=== PATIENT | female | born 1930 | race Caucasian/White ===

== ENCOUNTER 2019-01-12 22:50 | Emergency (ER) | payer MEDICARE ==
[~2019-01-12] VITALS: Ht 157.5 cm; Wt 53.8 kg
[~2019-01-12 22:50] MED LIST: ACID1TAB PO; ACYC800T PO; ALBU2.5V52 INH; ASP325T PO; ASP81CT PO; ASP81TEC PO; CALC500T47 PO; CHOL100055 PO; CHOL500019 PO; FLC150T PO; HYDR-3583 PO; LISI5TAB PO; LSRT50T PO; LVT.025T PO; METO25TA PO; MTP25TSR PO; MTX2.5T PO; MULT1CAP27 PO; MUPI22OI TP; OMEG-12 PO; PNT40TEC PO; PRD5T PO; PRED2.5T4 PO; SENN1TAB76 PO; SNN187T PO; TICA90TA PO; TIOT18CA IH; VANC1.5P IV
--- OUTSIDE RECORDS SUMMARY | 2019-01-12 22:57 | XMS REPORT | Continuity of Care Document ---
Author Author [facility] Organization [facility] Address Unknown Phone Unavailable Allergies Active Description Code Type Severity Reaction Onset Reported/Identified Relationship to Patient Clinical Status Yes NO KNOWN DRUG ALLERGIES NO KNOWN DRUG ALLERG UNKNOWN Yes NO KNOWN DRUG ALLERGIES UNKNOWN NO KNOWN DRUG ALLERG Yes No Known Drug Allergies [id number] Drug Allergy Unknown N/A 11/26/2012 Medications Medication Packaging Start Date Stop Date Route Dosage Sig ONDANSETRON VIAL INJ 4 MG/2CC (ZOFRAN 2CC VIAL) MG 03/28/2017 03/28/2017 PRN ONCE LACTATED RINGERS 500CC IV BAG INJ ml 03/28/2017 03/28/2017 ONCE&0802 LACTATED RINGERS 500CC IV BAG INJ ml 03/28/2017 03/28/2017 ONCE&0845 ACETAMINOPHEN ORAL TABLET 325mg(Tylenol) MG 04/01/2017 04/08/2017 PRN EVERY 6 Hour AZITHROMYCIN TAB 500 MG (ZITHROMAX) MG 04/01/2017 04/05/2017 Daily&2000 CEFTRIAXONE PREMIX IV BAG IV 1 GM/50CC (ROCEPHIN PREMIX IV BAG) GM 04/01/2017 04/08/2017 BID&0800,2000 GABAPENTIN CAP 300 MG (NEURONTIN) MG 04/01/2017 04/07/2017 QHS&2100 IPRATROPIUM/ALBUTEROL INH SOLN (DUO-NEB INH SOLN) MLS 04/01/2017 04/08/2017 QID&0600,1100,1600,2100 LACTOBACILLUS BULGARIS TAB (LACTINEX BULGARIS) tab 04/01/2017 04/11/2017 QID&0800,1200,1700,2200 FOLIC ACID TAB 1 MG MG 04/02/2017 04/08/2017 Daily& 0900 Rivastigmine TD Patch 24 hour 4.6mg (EXELON) MG 04/02/2017 04/11/2017 Daily&0900 CITALOPRAM TAB 10 MG (CELEXA) MG 04/02/2017 ONCE&1100 Dronabinol (MARINOL) 2.5mg capsule MG 04/02/2017 04/12/2017 EVERY 8 Hour&0307,1107,1907 Dronabinol (MARINOL) 2.5mg capsule MG 04/02/2017 04/12/2017 TID&0630,1130,1630 AZITHROMYCIN TAB 500 MG (ZITHROMAX) MG 04/02/2017 04/06/2017 Daily&2000 CEFTRIAXONE PREMIX IV BAG IV 1 GM/50CC (ROCEPHIN PREMIX IV BAG) GM 04/02/2017 04/09/2017 BID&0800,2000 CITALOPRAM TAB 10 MG (CELEXA) MG 04/09/2017 Daily&0900 AZITHROMYCIN TAB 500 MG (ZITHROMAX) MG 04/03/2017 04/07/2017 Daily&2000 NORMAL SALINE 1000CC IV BAG INJ 0.9 % (NS 1000CC IV BAG) ml 04/04/2017 04/19/2017 CONTINUOUSEVERY 0 Hour IPRATROPIUM/ALBUTEROL INH SOLN (DUO-NEB INH SOLN) MLS 04/05/2017 04/12/2017 QID&0600,1100,1600,2100 Dronabinol (MARINOL) 2.5mg capsule Dose(s) 04/05/2017 05/05/2017 TID&0630,1130,1630 LACTOBACILLUS BULGARIS TAB (LACTINEX BULGARIS) tab 04/05/2017 05/05/2017 QID&0800,1200,1700,2200 ACETAMINOPHEN ORAL TABLET 325mg(Tylenol) MG 04/05/2017 05/05/2017 QID&0800,1200,1700,2200 IPRATROPIUM/ALBUTEROL INH SOLN (DUO-NEB INH SOLN) MLS 04/05/2017 05/05/2017 QID&0800,1200,1700,2200 GUAIFENESIN TAB 600 MG (MUCINEX) MG 04/05/2017 04/12/2017 Q12H&0600,1800 AZITHROMYCIN TAB 500 MG (ZITHROMAX) MG 04/05/2017 04/06/2017 Daily&2000 GABAPENTIN CAP 300 MG (NEURONTIN) MG 04/05/2017 05/04/2017 QHS&2100 FOLIC ACID TAB 1 MG MG 04/06/2017 05/05/2017 Daily& 0900 AZITHROMYCIN TAB 500 MG (ZITHROMAX) MG 04/06/2017 04/10/2017 Daily&0900 CITALOPRAM TAB 10 MG (CELEXA) MG 05/05/2017 Daily&0900 Rivastigmine TD Patch 24 hour 4.6mg (EXELON) PATCH 04/06/2017 05/05/2017 Daily&0900 CEFTRIAXONE PREMIX IV BAG IV 1 GM/50CC (ROCEPHIN PREMIX IV BAG) GM 04/06/2017 04/12/2017 Daily&0900 doxycycline hyclate 100mg capsule (Vibramycin) MG 04/08/2017 04/17/2017 BID&0800,2000 METHOTREXATE TAB 2.5 MG (RHEUMATREX) MG 04/08/2017 04/15/2017 Q1WK&0900 doxycycline hyclate 100mg capsule (Vibramycin) MG 04/08/2017 04/17/2017 EVERY 12 Hour&0919,2119 IPRATROPIUM/ALBUTEROL INH SOLN (DUO-NEB INH SOLN) MLS 04/09/2017 04/16/2017 PRN Q6H Ondansetron (Zofran) oral tablet,disintegrating 4mg MG 04/09/2017 04/16/2017 PRN Q6H ACETAMINOPHEN ORAL TABLET 325mg(Tylenol) MG 04/11/2017 04/18/2017 PRN BID NORMAL SALINE 1000CC IV BAG INJ 0.9 % (NS 1000CC IV BAG) ml 10/20/2017 11/04/2017 CONTINUOUSEVERY 0 Hour ACETAMINOPHEN ORAL TABLET 325mg(Tylenol) MG 10/20/2017 10/27/2017 PRN EVERY 6 Hour AZITHROMYCIN TAB 500 MG (ZITHROMAX) MG 10/20/2017 10/20/2017 ONCE&1138 LACTOBACILLUS BULGARIS TAB (LACTINEX BULGARIS) tab 10/20/2017 10/30/2017 QID&0800,1200,1700,2200 ONDANSETRON VIAL INJ 4 MG/2CC (ZOFRAN 2CC VIAL) MG 10/20/2017 10/27/2017 PRN Q6H CEFTRIAXONE PREMIX IV BAG IV 1 GM/50CC (ROCEPHIN PREMIX IV BAG) GM 10/20/2017 10/20/2017 ONCE&1230 ALBUTEROL SVN 2.5MG/3CC LIQ 2.5 MG (PROVENTIL SIMRAN 2.5MG/3CC) MG 10/20/2017 10/30/2017 PRN QID GABAPENTIN CAP 300 MG (NEURONTIN) MG 10/20/2017 10/26/2017 QHS&2100 FOLIC ACID TAB 1 MG MG 10/21/2017 10/27/2017 Daily& 0900 METHOTREXATE TAB 2.5 MG (RHEUMATREX) MG 10/21/2017 11/11/2017 Q1WK&0900 CITALOPRAM TAB 10 MG (CELEXA) MG 10/27/2017 Daily&0900 CEFTRIAXONE PREMIX IV BAG IV 1 GM/50CC (ROCEPHIN PREMIX IV BAG) GM 10/21/2017 10/27/2017 Daily&0900 AZITHROMYCIN TAB 250 MG (ZITHROMAX) MG 10/21/2017 10/24/2017 Daily&1100 AZITHROMYCIN TAB 500 MG (ZITHROMAX) MG 10/21/2017 10/21/2017 ONCE&1200 AZITHROMYCIN TAB 500 MG (ZITHROMAX) MG 10/22/2017 10/26/2017 Daily&0900 NORMAL SALINE 1000CC IV BAG INJ 0.9 % (NS 1000CC IV BAG) ml 10/22/2017 11/06/2017 CONTINUOUSEVERY 0 Hour Dronabinol (MARINOL) 2.5mg capsule MG 10/22/2017 11/01/2017 EVERY 8 Hour&0254,1054,1854 Dronabinol (MARINOL) 2.5mg capsule MG 10/22/2017 11/01/2017 TID&0630,1130,1630 MECLIZINE TAB 25 MG (ANTIVERT) MG 10/22/2017 10/29/2017 Q8H&0600,1400,2200 CALMOSEPTINE OINT TUBE (RISAMINE OINT) gael 10/22/2017 10/29/2017 BID&0800,2000 NORMAL SALINE 1000CC IV BAG INJ 0.9 % (NS 1000CC IV BAG) ml 10/23/2017 11/07/2017 CONTINUOUSEVERY 0 Hour Dronabinol (MARINOL) 2.5mg capsule MG 10/23/2017 11/22/2017 TID&0630,1130,1630 LACTOBACILLUS BULGARIS TAB (LACTINEX BULGARIS) tab 10/23/2017 11/22/2017 QID&0800,1200,1700,2200 ACETAMINOPHEN ORAL TABLET 325mg(Tylenol) MG 10/23/2017 11/02/2017 PRN QID ONDANSETRON VIAL INJ 4 MG/2CC (ZOFRAN 2CC VIAL) MG 10/23/2017 11/02/2017 PRN Q6H ALBUTEROL SVN 2.5MG/3CC LIQ 2.5 MG (PROVENTIL SIMRAN 2.5MG/3CC) MG 10/23/2017 11/07/2017 PRN QID MECLIZINE TAB 25 MG (ANTIVERT) MG 10/23/2017 11/07/2017 Q8H&0600,1400,2200 CALMOSEPTINE OINT TUBE (RISAMINE OINT) gael 10/23/2017 11/07/2017 BID&0800,2000 GABAPENTIN CAP 300 MG (NEURONTIN) MG 10/23/2017 11/06/2017 QHS&2100 MELATONIN TAB 3 MG (MELATONIN) MG 10/23/2017 10/30/2017 PRN QHS FOLIC ACID TAB 1 MG MG 10/24/2017 11/22/2017 Daily& 0900 AZITHROMYCIN TAB 500 MG (ZITHROMAX) MG 10/24/2017 10/26/2017 Daily&0900 CITALOPRAM TAB 10 MG (CELEXA) MG 11/22/2017 Daily&0900 NORMAL SALINE 50CC IV BAG INJ (NS 50CC MINI-BAG) ml 10/24/2017 10/27/2017 Daily&0900 CEFTRIAXONE PREMIX IV BAG IV 1 GM/50CC (ROCEPHIN PREMIX IV BAG) GM 10/24/2017 10/27/2017 Daily&0900 MILK OF MAGNESIA LIQ ml 10/26/2017 11/05/2017 PRN Daily BISACODYL SUPPOS SUP 10 MG (DULCOLAX SUPPOS) MG 10/27/2017 11/03/2017 PRN Daily METHOTREXATE TAB 2.5 MG (RHEUMATREX) MG 10/28/2017 10/31/2017 Q1WK&0900 Mineral oil rectal enema (Fleets) APPLICATION 10/28/2017 10/28/2017 PRN ONCE ACETAMINOPHEN ORAL TABLET 325mg(Tylenol) MG 11/29/2017 11/29/2017 PRN ONCE NORMAL SALINE 1000CC IV BAG INJ 0.9 % (NS 1000CC IV BAG) ml 11/29/2017 12/14/2017 CONTINUOUSEVERY 0 Hour CEFEPIME VIAL INJ 2 GM (MAXIPIME VIAL) GM 11/29/2017 12/05/2017 Q12H&0200,1400 CEFEPIME VIAL INJ 2 GM (MAXIPIME VIAL) GM 11/29/2017 12/05/2017 Q12H&0600,1800 MECLIZINE TAB 25 MG (ANTIVERT) MG 11/29/2017 12/13/2017 Q8H&0600,1400,2200 Dronabinol (MARINOL) 2.5mg capsule MG 11/29/2017 12/28/2017 TID&0630,1130,1630 CALMOSEPTINE OINT TUBE (RISAMINE OINT) gael 11/29/2017 12/13/2017 BID&0800,2000 LACTOBACILLUS BULGARIS TAB (LACTINEX BULGARIS) tab 11/29/2017 12/28/2017 QID&0800,1200,1700,2200 FOLIC ACID TAB 1 MG MG 11/29/2017 12/28/2017 Daily& 0900 CITALOPRAM TAB 10 MG (CELEXA) MG 12/28/2017 Daily&0900 MILK OF MAGNESIA LIQ ml 11/29/2017 12/09/2017 PRN Daily IPRATROPIUM/ALBUTEROL INH SOLN (DUO-NEB INH SOLN) MLS 11/29/2017 12/06/2017 PRN Q4H Normal SALINE 0.9 % (NS 100cc) (plain bag) ml 11/29/2017 12/05/2017 Q12H - 11:59, 23:59&1159,2359 ACETAMINOPHEN ORAL TABLET 325mg(Tylenol) MG 11/29/2017 12/06/2017 PRN EVERY 6 Hour GABAPENTIN CAP 300 MG (NEURONTIN) MG 11/29/2017 12/13/2017 QHS&2100 Problems Date Dx Coded Attending Type Code Diagnosis Diagnosed By 03/28/2012 Ot 041.12 03/28/2012 Ot 112.0 03/28/2012 Ot 244.9 03/28/2012 Ot 273.8 03/28/2012 Ot 300.00 03/28/2012 Ot 401.9 03/28/2012 Ot 486 03/28/2012 Ot 491.20 03/28/2012 Ot 681.10 03/28/2012 Ot 714.0 03/28/2012 Ot 730.07 03/28/2012 Ot 786.50 03/28/2012 Ot 998.11 11/26/2012 Ot 244.9 11/26/2012 Ot 272.4 11/26/2012 Ot 273.8 11/26/2012 Ot 275.2 11/26/2012 Ot 276.2 11/26/2012 Ot 276.69 11/26/2012 Ot 276.8 11/26/2012 Ot 285.1 11/26/2012 Ot 286.6 11/26/2012 Ot 401.9 11/26/2012 Ot 414.01 11/26/2012 Ot 496 11/26/2012 Ot 512.1 11/26/2012 Ot 714.0 11/26/2012 Ot 785.59 11/26/2012 Ot 998.11 11/26/2012 Ot 998.2 11/26/2012 Ot 998.81 12/01/2012 Ot 276.8 12/01/2012 Ot 285.9 12/01/2012 Ot 288.60 12/01/2012 Ot 401.9 12/01/2012 Ot 414.01 12/01/2012 Ot 584.9 12/01/2012 Ot 782.4 12/01/2012 Ot E932.0 12/01/2012 Ot V45.82 12/01/2012 Ot V57.1 12/01/2012 Ot V57.21 08/19/2013 KEVIN MASSEY MD Ot 785.1 11/10/2015 Ot 496 11/10/2015 Ot 729.5 11/10/2015 Ot 729.81 11/10/2015 Ot 490 11/10/2015 Ot 786.2 11/10/2015 Ot 714.0 11/10/2015 Ot 727.1 11/10/2015 Ot 730.27 11/10/2015 Ot 714.0 11/10/2015 Ot 730.20 11/10/2015 Ot 041.12 11/10/2015 Ot 730.27 11/10/2015 Ot V58.62 11/10/2015 Ot 730.27 11/10/2015 Ot 413.9 11/10/2015 Ot 785.1 11/10/2015 Ot 786.50 11/10/2015 Ot 272.4 11/10/2015 Ot 397.0 11/10/2015 Ot 401.9 11/10/2015 Ot 424.0 11/10/2015 Ot 429.3 11/10/2015 Ot 496 11/10/2015 Ot 786.50 11/10/2015 Ot 280.0 11/10/2015 Ot 414.01 11/10/2015 Ot 586 11/10/2015 Ot 785.1 11/10/2015 DANISHROSITA SOFT WORK WRAPPER EXAMINER Ot 496 11/10/2015 DANISHINDIAROSITA Nilesh SOFT WORK WRAPPER EXAMINER Ot 786.2 12/01/2015 HASEEB ROBERTS [employer] CUTTER Ot M25.552 12/01/2015 HASEEB ROBERTS [employer] SE[employer] CUTTER Ot W19.XXXA 12/01/2015 HASEEB ROBERTS [employer] SE[employer] CUTTER Ot Y99.8 03/02/2017 Ot 714.0 RHEUMATOID ARTHRITIS 03/02/2017 Ot 727.1 BUNION 03/02/2017 Ot 730.27 OSTEOMYELITIS NOS-ANKLE 03/28/2017 Cullen Page 780.79 OTHER MALAISE AND FATIGUE 03/28/2017 Cullen Page 781.99 OTHER SYMPTOMS INVOLVING NERVOUS AND MUSCULOSKELETAL SYSTEMS 03/28/2017 Cullen Page 787.01 NAUSEA WITH VOMITING 03/28/2017 Cullen Page R11.2 NAUSEA WITH VOMITING, UNSPECIFIED 03/28/2017 Cullen Page R29.6 REPEATED FALLS 03/28/2017 Cullen Page R53.1 WEAKNESS 04/01/2017 Ot 714.0 RHEUMATOID ARTHRITIS 04/01/2017 Ot 727.1 BUNION 04/01/2017 Ot 730.27 OSTEOMYELITIS NOS-ANKLE 04/01/2017 Landry Dumont A 486 PNEUMONIA, ORGANISM UNSPECIFIED 04/01/2017 Landry Dumont A J18.9 PNEUMONIA, UNSPECIFIED ORGANISM 04/01/2017 Landry Dumont W 486 PNEUMONIA, ORGANISM UNSPECIFIED 04/01/2017 Landry Dumont J18.9 PNEUMONIA, UNSPECIFIED ORGANISM 04/05/2017 Landry Dumont W 276.1 HYPOSMOLALITY AND/OR HYPONATREMIA 04/05/2017 Landry Dumont W 599.0 04/05/2017 Tim Landry W 714.0 RHEUMATOID ARTHRITIS 04/05/2017 Brown, Landry W 780.79 04/05/2017 Brown, Landry W 781.99 OTHER SYMPTOMS INVOLVING NERVOUS AND MUSCULOSKELETAL SYSTEMS 04/05/2017 Brown, Landry W E87.1 HYPO-OSMOLALITY AND HYPONATREMIA 04/05/2017 Brown, Landry W M06.9 RHEUMATOID ARTHRITIS, UNSPECIFIED 04/05/2017 Brown, Landry W N39.0 URINARY TRACT INFECTION, SITE NOT SPECIFIED 04/05/2017 BrownMackLandry W R29.6 REPEATED FALLS 04/05/2017 BrownMackLandry W R53.1 WEAKNESS 04/11/2017 Brown, Landry A 486 PNEUMONIA, ORGANISM UNSPECIFIED 04/11/2017 Brown Landry W 599.0 URINARY TRACT INFECTION, SITE NOT SPECIFIED 04/11/2017 BrownMackLandry W 714.0 RHEUMATOID ARTHRITIS 04/11/2017 Brown Landry W 780.60 FEVER, UNSPECIFIED 04/11/2017 Brown, Landry A J18.9 PNEUMONIA, UNSPECIFIED ORGANISM 04/11/2017 BrownMackLandry W M06.9 RHEUMATOID ARTHRITIS, UNSPECIFIED 04/11/2017 BrownMackLandry W N39.0 URINARY TRACT INFECTION, SITE NOT SPECIFIED 04/11/2017 BrownMackLandry W R50.9 FEVER, UNSPECIFIED 10/12/2017 Brown, Landry A 041.81 MYCOPLASMA INFECTION IN CONDITIONS CLASSIFIED ELSEWHERE AND OF UNSPECIFIED SITE 10/12/2017 Brown, Landry A 486 PNEUMONIA, ORGANISM UNSPECIFIED 10/12/2017 Brown, Landry A J15.7 PNEUMONIA DUE TO MYCOPLASMA PNEUMONIAE 10/12/2017 Brown, Landry A J18.9 PNEUMONIA, UNSPECIFIED ORGANISM 10/20/2017 Brown, Landry A 041.81 MYCOPLASMA INFECTION IN CONDITIONS CLASSIFIED ELSEWHERE AND OF UNSPECIFIED SITE 10/20/2017 Brown, Alndry A J15.7 PNEUMONIA DUE TO MYCOPLASMA PNEUMONIAE 10/20/2017 Brown, Landry W 486 PNEUMONIA, ORGANISM UNSPECIFIED 10/20/2017 Brown, Landry W 728.88 RHABDOMYOLYSIS 10/20/2017 Brown, Landry W E888.9 UNSPECIFIED FALL 10/20/2017 Brown, Landry W J18.9 PNEUMONIA, UNSPECIFIED ORGANISM 10/20/2017 Brown, Landry W M62.82 RHABDOMYOLYSIS 10/20/2017 Brown, Landry W W19 UNSPECIFIED FALL 10/20/2017 Tim, Landry W 486 PNEUMONIA, ORGANISM UNSPECIFIED 10/20/2017 Brown, Landry W 728.88 RHABDOMYOLYSIS 10/20/2017 Landry Dumont W E888.9 UNSPECIFIED FALL 10/20/2017 Landry Dumont W J18.9 PNEUMONIA, UNSPECIFIED ORGANISM 10/20/2017 Landry Dumont W M62.82 RHABDOMYOLYSIS 10/20/2017 Tim, Landry W W19 UNSPECIFIED FALL 10/23/2017 Landry Dumont W 290.0 10/23/2017 Brown, Landry W 486 PNEUMONIA, ORGANISM UNSPECIFIED 10/23/2017 Landry Dumont W 491.20 10/23/2017 Landry Dumont W 728.88 RHABDOMYOLYSIS 10/23/2017 TimLandry W 780.4 10/23/2017 Landry Dumont W E888.9 UNSPECIFIED FALL 10/23/2017 TimMackLandry W F03.90 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 10/23/2017 TimLandry W J18.9 PNEUMONIA, UNSPECIFIED ORGANISM 10/23/2017 Tim Landry W J44.9 CHRONIC OBSTRUCTIVE PULMONARY DISEASE, UNSPECIFIED 10/23/2017 Landry Dumont W M62.82 RHABDOMYOLYSIS 10/23/2017 Landry Dumont R42 DIZZINESS AND GIDDINESS 10/23/2017 Landry Dumont V15.88 PERSONAL HISTORY OF FALL 10/23/2017 Landry Dumont W W19 UNSPECIFIED FALL 10/23/2017 Landry Dumont W Z91.81 HISTORY OF FALLING 11/01/2017 Landry Dumont 041.81 MYCOPLASMA INFECTION IN CONDITIONS CLASSIFIED ELSEWHERE AND OF UNSPECIFIED SITE 11/01/2017 Tim Landry W 290.0 11/01/2017 Tim Landry W 491.20 OBSTRUCTIVE CHRONIC BRONCHITIS, WITHOUT EXACERBATION 11/01/2017 Tim Landry W 780.4 DIZZINESS AND GIDDINESS 11/01/2017 Ladnry Dumont F03.90 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 11/01/2017 Landry Dumont J15.7 PNEUMONIA DUE TO MYCOPLASMA PNEUMONIAE 11/01/2017 Landry Dumont J44.9 CHRONIC OBSTRUCTIVE PULMONARY DISEASE, UNSPECIFIED 11/01/2017 Landry Dumont W R42 DIZZINESS AND GIDDINESS 11/01/2017 Brown, Landry W V15.88 PERSONAL HISTORY OF FALL 11/01/2017 Brown, Landry W Z91.81 HISTORY OF FALLING 11/29/2017 Brown, Landry W 780.61 FEVER PRESENTING WITH CONDITIONS CLASSIFIED ELSEWHERE 11/29/2017 Brown, Landry W R50.81 FEVER PRESENTING WITH CONDITIONS CLASSIFIED ELSEWHERE 11/29/2017 Brown, Landry W 780.61 FEVER PRESENTING WITH CONDITIONS CLASSIFIED ELSEWHERE 11/29/2017 Brown, Landry W E888.9 UNSPECIFIED FALL 11/29/2017 Brown, Landry W R50.81 FEVER PRESENTING WITH CONDITIONS CLASSIFIED ELSEWHERE 11/29/2017 Brown, Landry W W19 UNSPECIFIED FALL 11/29/2017 Brown, Landry W 780.61 FEVER PRESENTING WITH CONDITIONS CLASSIFIED ELSEWHERE 11/29/2017 Brown, Landry W E888.9 UNSPECIFIED FALL 11/29/2017 Brown, Landry W R50.81 FEVER PRESENTING WITH CONDITIONS CLASSIFIED ELSEWHERE 11/29/2017 Brown, Landry W W19 UNSPECIFIED FALL 11/29/2017 Brown, Landry W 780.61 FEVER PRESENTING WITH CONDITIONS CLASSIFIED ELSEWHERE 11/29/2017 Brown, Landry W E888.9 UNSPECIFIED FALL 11/29/2017 Brown, Landry W R50.81 FEVER PRESENTING WITH CONDITIONS CLASSIFIED ELSEWHERE 11/29/2017 Brown, Landry W W19 UNSPECIFIED FALL 11/29/2017 Brown, Landry W 780.61 FEVER PRESENTING WITH CONDITIONS CLASSIFIED ELSEWHERE 11/29/2017 Brown, Landry W E888.9 UNSPECIFIED FALL 11/29/2017 Brown, Landry W R50.81 FEVER PRESENTING WITH CONDITIONS CLASSIFIED ELSEWHERE 11/29/2017 Brown, Landry W W19 UNSPECIFIED FALL 11/30/2017 Brown, Landry W 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, UNCOMPLICATED 11/30/2017 Brown, Landry W 714.0 RHEUMATOID ARTHRITIS 11/30/2017 Brown, Landry A 780.60 11/30/2017 Brown, Landry W 780.61 FEVER PRESENTING WITH CONDITIONS CLASSIFIED ELSEWHERE 11/30/2017 Brown, Landry W 780.79 11/30/2017 Brown, Landry W 781.99 11/30/2017 Brown, Landry W 786.05 11/30/2017 Brown, Landry W 786.2 11/30/2017 Brown, Landry W E888.9 UNSPECIFIED FALL 11/30/2017 Brown, Landry W F03.90 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 Results Test Result Range Urine Culture - 02/07/17 11:20 PRELIM CULTURE RESULTS No Growth 24 hours FINAL CULTURE RESULTS No Growth 48 hours MEDIA PLATED Setup at 15:00 02/07/2017 CULTURE SOURCE void Holter [place] 24 Hour - 02/08/17 08:06 Holter Monitor 24 Hour Complete Sed Rate - 02/14/17 11:21 Sed Rate 26 mm/hr 9-15 Protime - 03/28/17 07:53 INR 1.0 1.0-4.0 Protime 11.7 Sec 9.9-12.8 Urinalysis - 03/28/17 08:48 Icotest N/A Negative Urine Crystals trace amorphous urates Urine Volume Urine Volume Insufficient (<10mL) May Affect Microscopic Exam Urine Yeast No Yeast present Urine-Appearance Clear Clear Urine-Bacteria Negative Urine-Bilirubin Negative Negative Urine-Blood Negative Negative Urine-Color Yellow Colorless-Lt. Yellow Urine-Epithelial Cells Rare/HPF Urine-Glucose Negative Negative Urine-Ketones Trace Negative Urine-Leukocytes Negative Negative Urine-Nitrite Negative Negative Urine-Other Urine Saved if Culture Needed (48hrs from time of collection) Urine-pH 5.5 5-8.5 Urine-Protein 1+ Negative Urine-RBC Negative Urine-Specific [place] 1.025 1.000-1.030 Urine-WBC Negative Urobilinogen 0.2 E.U./dL 0.2-1.0 Thyroid Stimulating Hormone - 04/01/17 14:07 TSH 1.63 mIU/mL 0.32-5.00 Urine Culture - 04/01/17 14:07 FINAL CULTURE RESULTS 20,000-50,000 Gram Positive Mixed [id number] Skin Contaminant [id number] Further Workup done MEDIA PLATED Setup at 14:46 on 04/01/2017 CULTURE SOURCE void Blood Culture - 04/01/17 14:30 PRELIM CULTURE RESULTS Blood Culture Negative, No Growth Day 1 FINAL CULTURE RESULTS Blood Culture Negative, No Growth Day 5 MEDIA PLATED Blood Culture Media Position C44 CULTURE SOURCE RIGHT ARM IFOBT Occult Blood - 04/01/17 17:30 IFOBT Occult Blood NEGATIVE Negative Blood Culture - 04/01/17 18:50 PRELIM CULTURE RESULTS Blood Culture Negative, No Growth Day 1 FINAL CULTURE RESULTS Blood Culture Negative, No Growth Day 5 MEDIA PLATED Blood Culture Media Position C50 CULTURE SOURCE left arm [facility] - 04/03/17 07:16 Anion Gap 13 6-14 BUN 11 mg/dL 5-25 Calcium 10.2 mg/dL 8.3-10.4 Chloride 100 mmol/L 95-114 CO2 28 mEq/L 22-33 Creat 0.88 mg/dL 0.50-1.50 eGFR 61 mL/min/1.73m2 >59 Glucose 98 mg/dL 70-110 Osmo 283 280-295 Potassium 3.8 mmol/L 3.5-5.3 Sodium 137 mmol/L 134-148 EKG - 04/03/17 10:27 EKG Complete Urinalysis - 04/04/17 15:10 Icotest N/A Negative Urine Volume Urine Volume Sufficient (10mL) Urine-Appearance Clear Clear Urine-Bilirubin Negative Negative Urine-Blood Trace-intact Negative Urine-Color Yellow Colorless-Lt. Yellow Urine-Epithelial Cells 0-5/HPF Urine-Glucose Negative Negative Urine-Ketones Negative Negative Urine-Leukocytes Negative Negative Urine-Nitrite Negative Negative Urine-pH 6.0 5-8.5 Urine-Protein Negative Negative Urine-RBC 0-2/HPF Urine-Specific [place] <=1.005 1.000-1.030 Urobilinogen 0.2 E.U./dL 0.2-1.0 [facility] - 04/05/17 06:45 Anion Gap 12 6-14 BUN 8 mg/dL 5-25 Calcium 9.6 mg/dL 8.3-10.4 Chloride 106 mmol/L 95-114 CO2 27 mEq/L 22-33 Creat 0.79 mg/dL 0.50-1.50 eGFR 69 mL/min/1.73m2 >59 Glucose 88 mg/dL 70-110 Osmo 289 280-295 Potassium 4.1 mmol/L 3.5-5.3 Sodium 141 mmol/L 134-148 Comprehensive Metabolic Panel - 04/07/17 07:00 Albumin 3.0 g/dL 3.6-5.1 ALP 75 U/L 35-130 ALT 20 U/L 6-45 Anion Gap 13 6-14 AST 37 U/L 2-40 BUN 10 mg/dL 5-25 Calcium 10.2 mg/dL 8.3-10.4 Chloride 101 mmol/L 95-114 CO2 28 mEq/L 22-33 Creat 0.88 mg/dL 0.50-1.50 eGFR 61 mL/min/1.73m2 >59 Globulin 2.3 g/dL 2.3-3.5 Glucose 87 mg/dL 70-110 Osmo 284 280-295 Potassium 4.4 mmol/L 3.5-5.3 Sodium 138 mmol/L 134-148 TBil 0.4 mg/dL 0.2-1.2 TP 5.3 g/dL 6.0-8.3 Urinalysis - 04/07/17 08:00 Icotest N/A Negative Urine Volume Urine Volume Sufficient (10mL) Urine Yeast No Yeast present Urine-Appearance Clear Clear Urine-Bacteria Trace Urine-Bilirubin Negative Negative Urine-Blood Negative Negative Urine-Color Yellow Colorless-Lt. Yellow Urine-Epithelial Cells 0-5/HPF Urine-Glucose Negative Negative Urine-Ketones Negative Negative Urine-Leukocytes Negative Negative Urine-Nitrite Negative Negative Urine-pH 7.0 5-8.5 Urine-Protein Negative Negative Urine-RBC 0-2/HPF Urine-Specific [place] 1.015 1.000-1.030 Urine-WBC 0-2/HPF Urobilinogen 0.2 E.U./dL 0.2-1.0 EKG - 04/07/17 10:13 EKG Complete CBC with Auto Diff - 04/10/17 07:00 Baso% 0.50 % 0.00-2.50 Eos 0.5 K/uL 0.0-0.7 Eos% 7.1 % 0.0-7.0 Hct 34.4 % 36.0-46.0 Hgb 10.9 g/dL 13.0-15.0 Lym 1.21 K/uL 0.60-3.40 Lym% 16.4 % 10.0-50.0 MCH 31.7 pg 27.0-31.0 MCHC 31.7 g/dL 32.0-36.0 MCV 100.0 fL 80.0-97.0 [place]% 10.3 % 0.0-12.0 MPV 9.6 fL 7.4-10.0 Kevin% 65.7 % 37.0-80.0 Plt 478 K/uL 150-400 RBC 3.44 M/uL 3.60-5.00 RDW 20.9 % 11.6-14.8 WBC 7.36 K/uL 5.00-10.00 Kevin 4.83 K/uL 2.00-6.90 [place] 0.8 K/uL 0.0-0.9 Baso 0.0 K/uL 0.0-0.2 BMP - 04/10/17 07:00 Anion Gap 13 6-14 BUN 16 mg/dL 5-25 Calcium 10.2 mg/dL 8.3-10.4 Chloride 102 mmol/L 95-114 CO2 28 mEq/L 22-33 Creat 0.87 mg/dL 0.50-1.50 eGFR 62 mL/min/1.73m2 >59 Glucose 88 mg/dL 70-110 Osmo 288 280-295 Potassium 4.4 mmol/L 3.5-5.3 Sodium 139 mmol/L 134-148 Mycoplasma - 10/20/17 10:03 Mycoplasma Positive Negative Urinalysis - 10/20/17 10:03 Icotest N/A Negative Urine Volume Urine Volume Sufficient (10mL) Urine Yeast No Yeast present Urine-Appearance Slightly Cloudy Clear Urine-Bacteria Negative Urine-Bilirubin Negative Negative Urine-Blood Negative Negative Urine-Color Yellow Colorless-Lt. Yellow Urine-Glucose Negative Negative Urine-Ketones Negative Negative Urine-Leukocytes Negative Negative Urine-Nitrite Negative Negative Urine-Other Urine Saved if Culture Needed (48hrs from time of collection) Urine-pH 7.5 5-8.5 Urine-Protein Trace Negative Urine-RBC Negative Urine-Specific [place] 1.015 1.000-1.030 Urine-WBC Nothing Seen on Microscopic Urobilinogen 0.2 E.U./dL 0.2-1.0 Lactic Acid - 10/20/17 10:25 Lactic Acid 17.2 mg/dL 4.5-19.8 Blood Culture - 10/20/17 10:26 PRELIM CULTURE RESULTS Blood Culture Negative, No Growth Day 1 FINAL CULTURE RESULTS Blood Culture Negative, No Growth Day 5 CULTURE SOURCE IV START Blood Culture - 10/20/17 14:49 PRELIM CULTURE RESULTS Blood Culture Negative, No Growth Day 1 FINAL CULTURE RESULTS Blood Culture Negative, No Growth Day 5 CULTURE SOURCE blood culture #2 right forearm Myoglobin - 10/21/17 05:23 Myoglobin 85.8 ng/ml 1.6-106.0 Sputum Culture - 10/21/17 19:11 PRELIM CULTURE RESULTS Abundant Gram Positive Mixed Patricia FINAL CULTURE RESULTS Abundant Gram Positive Mixed [id number] Pathogens Isolated [id number] Further Workup done MEDIA PLATED Setup at 20:29 on 10/21/2017 Myoglobin - 10/22/17 07:00 Myoglobin 62.6 ng/ml 1.6-106.0 BNP - 10/23/17 07:01 BNP 286.60 pg/ml 0.00-100.00 BNP - 10/25/17 06:03 BNP 163.80 pg/ml 0.00-100.00 BNP - 10/28/17 07:00 BNP 173.30 pg/ml 0.00-100.00 Urinalysis - 10/30/17 12:35 Icotest N/A Negative Urine Volume Urine Volume Sufficient (10mL) Urine Yeast No Yeast present Urine-Appearance Clear Clear Urine-Bacteria Negative Urine-Bilirubin Negative Negative Urine-Blood Negative Negative Urine-Color Yellow Colorless-Lt. Yellow Urine-Epithelial Cells 0-5/HPF Urine-Glucose Negative Negative Urine-Ketones Negative Negative Urine-Leukocytes Negative Negative Urine-Mucus 1+ Urine-Nitrite Negative Negative Urine-Other Urine Saved if Culture Needed (48hrs from time of collection) Urine-pH 6.5 5-8.5 Urine-Protein Negative Negative Urine-RBC Negative Urine-Specific [place] 1.010 1.000-1.030 Urine-WBC Nothing Seen on Microscopic Urobilinogen 0.2 E.U./dL 0.2-1.0 BMP - 11/01/17 06:27 Anion Gap 12 6-14 BUN 24 mg/dL 5-25 Calcium 10.0 mg/dL 8.3-10.4 Chloride 104 mmol/L 95-114 CO2 28 mEq/L 22-33 Creat 0.77 mg/dL 0.50-1.50 eGFR 71 mL/min/1.73m2 >59 Glucose 84 mg/dL 70-110 Osmo 290 280-295 Potassium 4.5 mmol/L 3.5-5.3 Sodium 139 mmol/L 134-148 Lactic Acid - 11/28/17 22:56 Lactic Acid 9.1 mg/dL 4.5-19.8 Urinalysis - 11/28/17 23:08 Icotest N/A Negative Urine Crystals Amorphous material: few/HPF Urine Volume Urine Volume Sufficient (10mL) Urine-Appearance Clear Clear Urine-Bacteria Negative Urine-Bilirubin Negative Negative Urine-Blood Trace-intact Negative Urine-Color Yellow Colorless-Lt. Yellow Urine-Epithelial Cells 0-5/HPF Urine-Glucose Negative Negative Urine-Ketones Negative Negative Urine-Leukocytes Negative Negative Urine-Nitrite Negative Negative Urine-Other Urine Saved if Culture Needed (48hrs from time of collection) Urine-pH 7.5 5-8.5 Urine-Protein Negative Negative Urine-RBC 0-2/HPF Urine-Specific [place] 1.020 1.000-1.030 Urine-WBC 0-2/HPF Urobilinogen 0.2 0.2-1.0 Urine Culture - 11/28/17 23:08 PRELIM CULTURE RESULTS No Growth 24 hours FINAL CULTURE RESULTS No Growth 48 hours MEDIA PLATED Setup at 23:10 on 11/28/2017 CULTURE SOURCE cath urine PTT - 11/28/17 23:25 PTT 33.5 Sec 26.0-38.0 Blood Culture - 11/29/17 00:07 PRELIM CULTURE RESULTS Blood Culture Negative, No Growth Day 1 FINAL CULTURE RESULTS Blood Culture Negative, No Growth Day 5 MEDIA PLATED Setup at 01:23 on 11/29/2017 CULTURE SOURCE Right Arm Blood Culture - 11/29/17 00:15 PRELIM CULTURE RESULTS Blood Culture Negative, No Growth Day 1 FINAL CULTURE RESULTS Blood Culture Negative, No Growth Day 5 MEDIA PLATED Setup at 01:24 on 11/29/2017 CULTURE SOURCE Left forearm Influenza - 11/29/17 00:38 Influenza NEGATIVE FOR A and B 0.00-0.00 Cardiac Panel - 11/29/17 06:23 CK 112 U/L 26-174 CK-MB 0.7 ng/ml 0.0-9.2 Myoglobin 90.4 ng/ml 1.6-106.0 Troponin <0.020 ng/mL 0.0-0.4 Cardiac Panel - 11/30/17 05:30 CK 74 U/L 26-174 CK-MB 0.9 ng/ml 0.0-9.2 Myoglobin 53.7 ng/ml 1.6-106.0 Troponin <0.020 ng/mL 0.0-0.4 BMP - 11/30/17 05:30 Anion Gap 11 6-14 BUN 13 mg/dL 5-25 Calcium 9.6 mg/dL 8.3-10.4 Chloride 113 mmol/L 95-114 CO2 22 mEq/L 22-33 Creat 0.78 mg/dL 0.50-1.50 eGFR 70 mL/min/1.73m2 >59 Glucose 84 mg/dL 70-110 Osmo 293 280-295 Potassium 3.9 mmol/L 3.5-5.3 Sodium 142 mmol/L 134-148 Encounters ACCT No. Visit Date/Time Discharge Status Pt. Type Provider Facility Loc./Unit Complaint [id number] 11/10/2015 13:01:00 11/10/2015 23:59:59 CLS Outpatient HASEEB ROBERTS APRN [facility] RAD [id number] 07/05/2014 08:56:00 07/05/2014 23:59:59 CLS Outpatient ROSITA PENG [facility] RAD [id number] 06/15/2013 09:30:00 08/19/2013 00:01:00 DIS Outpatient KEVIN MASSEY MD [facility] CARD [id number] 01/12/2019 22:51:00 ACT Emergency MONA SOL MÁRQUEZ [facility] ER FALL [id number] 11/10/2015 12:56:00 Document Registration [id number] 08/20/2013 09:00:00 Document Registration [id number] 12/05/2012 11:00:00 Document Registration [id number] 11/26/2012 11:10:00 Document Registration [id number] 11/18/2012 16:06:00 Document Registration [id number] 11/14/2012 07:58:00 Document Registration [id number] 11/04/2012 12:42:00 Document Registration [id number] 04/05/2012 09:00:00 Document Registration [id number] 04/01/2012 09:00:00 Document Registration [id number] 03/30/2012 08:40:00 Document Registration [id number] 03/19/2012 08:15:00 Document Registration [id number] 03/18/2012 11:57:00 Document Registration [id number] 02/11/2012 10:52:00 Document Registration [id number] 01/19/2011 13:32:00 Document Registration [id number] 11/28/2017 22:33:00 11/30/2017 15:45:00 DIS Outpatient [facility] MED-SURG [id number] 10/23/2017 10:00:00 11/01/2017 11:40:00 DIS Inpatient [facility] MED-SURG [id number] 10/20/2017 09:40:00 10/23/2017 10:00:00 DIS Inpatient [facility] MED-SURG [id number] 04/05/2017 10:00:00 04/11/2017 16:35:00 DIS Inpatient Landry Dumont [id number] 04/01/2017 13:12:00 04/05/2017 10:00:00 DIS Inpatient [facility] ICU [id number] 03/28/2017 07:25:00 03/28/2017 09:39:00 DIS Outpatient [facility] ER [id number] 02/21/2017 09:42:00 02/21/2017 23:59:00 DIS Outpatient Jacinto Ogden B [id number] 02/14/2017 11:09:00 02/14/2017 23:59:00 DIS Outpatient Jacinto Ogden B [id number] 02/08/2017 07:57:00 02/08/2017 23:59:00 DIS Outpatient TimLandry [id number] 02/07/2017 11:20:00 02/07/2017 23:59:00 DIS Outpatient Luann Gomez 804 03/28/2017 08:02:53 Document Registration
[2019-01-12] MEDS ORDERED: TETANUS,DIPTH,PERTUSS P/F (BOOSTRIX) 0.5 ML VIAL IM STA (23:01)
[2019-01-12 23:09] LABS: BASOPHILS # (AUTO) 0.1 10^3/uL (0.0-0.1); BASOPHILS % (AUTO) 1 % (0-10); EOSINOPHILS # (AUTO) 0.3 10^3/uL (0.0-0.3); EOSINOPHILS % (AUTO) 3 % (0-10); HEMATOCRIT 41 % (35-52); HEMOGLOBIN 13.3 G/DL (11.5-16.0); LYMPHOCYTES # (AUTO) 2.1 X 10^3 (1.0-4.0); LYMPHOCYTES % (AUTO) 21 % (12-44); MEAN CORPUSCULAR HEMOGLOBIN 31 PG (25-34); MEAN CORPUSCULAR HGB CONC 32 G/DL (32-36); MEAN CORPUSCULAR VOLUME 95 FL (80-99); MEAN PLATELET VOLUME 11.3 FL (7.4-10.4); MONOCYTES # (AUTO) 0.9 X 10^3 (0.0-1.0); MONOCYTES % (AUTO) 9 % (0-12); NEUTROPHILS # (AUTO) 6.7 X 10^3 (1.8-7.8); NEUTROPHILS % (AUTO) 67 % (42-75); PLATELET COUNT 224 10^3/uL (130-400); RED CELL DISTRIBUTION WIDTH 16.6 % (10.0-14.5); WHITE BLOOD COUNT 10.1 10^3/uL (4.3-11.0)
[2019-01-12 23:20] LABS: INR 0.9 (0.8-1.4); PROTHROMBIN TIME PATIENT 12.5 SEC (12.2-14.7)
[2019-01-12 23:25] LABS: ALANINE AMINOTRANSFERASE 18 U/L (0-55); ALBUMIN 3.9 GM/DL (3.2-4.5); ALKALINE PHOSPHATASE 123 U/L (40-136); BILIRUBIN,TOTAL 0.4 MG/DL (0.1-1.0); BUN/CREATININE RATIO 10; CALCIUM 10.4 MG/DL (8.5-10.1); CARBON DIOXIDE 25 MMOL/L (21-32); CHLORIDE 103 MMOL/L (98-107); CREATININE SERUM 1.34 MG/DL (0.60-1.30); GFR ESTIMATED 38; GLUCOSE 99 MG/DL (70-105); MAGNESIUM 2.1 MG/DL (1.8-2.4); POTASSIUM 4.1 MMOL/L (3.6-5.0); SODIUM 140 MMOL/L (135-145)
[2019-01-13 00:45] LABS: BILIRUBIN,URINE NEGATIVE (NEGATIVE); CLARITY,URINE SLIGHTLY CLOUDY; COLOR,URINE YELLOW; GLUCOSE, URINE (UA) NEGATIVE (NEGATIVE); KETONES,URINE NEGATIVE (NEGATIVE); LEUKOCYTE ESTERASE ,URINE 3+ (NEGATIVE); NITRITE,URINE POSITIVE (NEGATIVE); PH,URINE 6 (5-9); PROTEIN,URINE NEGATIVE (NEGATIVE); UROBILINOGEN,URINE NORMAL (NORMAL)
[2019-01-13 00:52] LABS: BACTERIA,URINE LARGE /HPF; SQUAMOUS EPITHELIAL CELL,UR 0-2 /HPF; WBC,URINE 25-50 /HPF
[2019-01-13] MEDS ORDERED: KETOROLAC 30 MG/ML VIAL ONE (01:05)
[2019-01-13] MEDS ORDERED: SULF1TAB35 PO (01:12)
--- NOTE | 2019-01-13 01:12 | ED Fall/Injury ---
General Chief Complaint: Trauma-Non Activation Stated Complaint: FALL Source: family (SON ARRIVES LATER ), EMS, care home records, old records ( ALL [facility]H IS FROM OLD RECORD) Exam Limitations: other (PT WITH DEMENTIA, UNABLE TO RECALL THE FALL, AND EVENT WAS NOT WITNESSED) History of Present Illness Date Seen by Provider: Jan 12, 2019 Time Seen by Provider: 22:57 Initial Comments PT ARRIVES VIA EMS FROM [facility]IA [facility] PT HAD UNWITNESSED "FALL" TONIGHT PT HAS LACERATION TO BACK OF HEAD AND C/O PAIN TO LEFT ELBOW PT HAS DEMENTIA AND HAS NO RECOLLECTION OF THE EVENT, WHERE SHE WAS OR WHAT SHE WAS DOING--THIS IS PT'S NORMAL BASELINE. PT REPORTEDLY VOMITED EARLIER AND PT AGREES THAT SHE DID VOMIT. SHE DENIES FEELING NAUSEATED NOW. PT STATES THAT HER HEAD HURT EARLIER BUT IT DOES NOT HURT NOW. PT DENIES NECK OR BACK PAIN PT DENIES HIP PAIN PT WITH HISTORY OF FALLS PT HAS NOT HAD ANY VISITS HERE SINCE 2011 PCP: DR. MASSEY Allergies and Home Medications Allergies Coded Allergies: No Known Drug Allergies (Unverified , 11/26/12) Home Medications Aspirin 81 Mg Chew, 81 MG PO DAILY, (Reported) Cholecalciferol (Vitamin D3) 50,000 Unit Capsule, 50,000 UNIT PO DAILY, ( Reported) Lisinopril 5 Mg Tablet, 5 MG PO DAILY, (Reported) Methotrexate 2.5 Mg Tab, 4 EACH PO WEEKLY, (Reported) Metoprolol Succinate 25 Mg Tab, 25 MG PO DAILY, (Reported) Multivitamins 1 Each Capsule, 1 EACH PO DAILY, (Reported) Kenvir-3/Dha/Epa/Fish Oil 1 Each Capsule.dr, 1 EACH PO BID, (Reported) Pantoprazole Sodium 40 Mg Tablet.dr, 1 TAB PO DAILY, (Reported) Prednisone 2.5 Mg Tablet, 3 TAB PO DAILY, (Reported) Sulfamethoxazole/Trimethoprim 1 Each Tablet, 1 EACH PO BID Prescribed by: SOL DUNN on 01/13/19 0112 Ticagrelor 90 Mg Tablet, 90 MG PO BID, (Reported) Tiotropium [place] 1 Inh Aerp, 0 IH DAILY, (Reported) 1 INHALATION Patient Home Medication List Home Medication List Reviewed: Yes Review of Systems Review of Systems Constitutional: no symptoms reported; No dizziness Respiratory: no symptoms reported Cardiovascular: no symptoms reported Gastrointestinal: see HPI, nausea, vomiting Genitourinary: no symptoms reported Musculoskeletal: see HPI Skin: see HPI Psychiatric/Neurological: See HPI, Pre-Existing Deficit (DEMENTIA) Past Fvkseeg-Hmovtl-Xsdmmv Hx Patient Social History Alcohol Use: Denies Use Recreational Drug Use: No Smoking Status: Never a Smoker Recent Foreign Travel: No Contact w/Someone Who Travel: No Immunizations Up To Date Date of Pneumonia Vaccine: Nov 18, 2009 Past Medical History Surgeries: Yes (CARDIAC CATH WTIH ANGIOPLSTY AND STENT X1--COMPLICATIONS-- REPAIR OF FEMORAL ARTERY BLEED, BILATERAL CHEST TUBES X 2; BILATERAL CATARACTS; HYST; AMPUTATION LEFT 5TH TOE DUE TO OSTEOMYELITIS) Amputation, Angioplasty, Appendectomy, Cardiac, Coronary Stent, Hysterectomy, Orthopedic, Vascular Surgery Respiratory: Yes (CODED DUE TO FEMORAL ARTERY BLEED POST CARDIAC CATH-- TRAUMATIC INTUBATION WITH BILATERAL CHIEST TUBES; HAS BEEN STEROID DEPENDENT COPD IN THE PAST. ) Asthma, COPD Cardiac: Yes (CODED POST-CARDIAC CATH DUE TO FEMORAL ARTERY BLEED/ RETROPERITONEAL BLEED WITH EMERGENT SURGICAL REPAIR,WITH TRAUMATIC INTUBATION WITH PNEMOMEDIASTINUM AND BILATERAL CHEST TUBES; ) Coronary Artery Disease, High Cholesterol, Hypertension, Peripheral Vascular Neurological: Yes Dementia Reproductive Disorders: No MANAGER ART History: Hysterectomy, Menopausal Genitourinary: Yes UTI-Chronic Gastrointestinal: No Musculoskeletal: Yes (OSTEOMYELITIS LEFT 5TH TOE WITH AMPUTATION; POOR BALANCE/ GAIT DISTURBANCE; FALLS; VERTEBRAL COMPRESSION FRACTURE--NO SURGERY) Rheumatoid Arthritis, Fractures Endocrine: Yes Hypothyroidsim HEENT: Yes Cataract Cancer: No Psychosocial: No Integumentary: Yes (MRSA; OSTEOMYELITIS LEFT 5TH TOE WITH AMPUTATION) Blood Disorders: No Physical Exam Vital Signs Vital Signs - First Documented 01/12/19 01/13/19 22:50 01:56 Temp 97.9 Pulse 69 Resp 20 B/P (MAP) 123/77 (92) Pulse Ox 100 Capillary Refill : Height, Weight, BMI Height: '" Weight: lbs. oz. kg; BMI Method: General Appearance: WD/WN, no apparent distress, other (SHIVERING, BUT SMILING AND VERY PLEASANT) HEENT: PERRL/EOMI, TMs normal, pharynx normal, other (PINPOINT PUNCTURE/ LACERATION TO LEFT POSTERIOR OCCIPUT--NO BLEEDING. MILD SURROUNDING SOFT TISSUE SWELLING AND TENDERNESS. ) Neck: non-tender, full range of motion, supple, normal inspection Cardiovascular: normal peripheral pulses, regular rate, rhythm, no edema, no JVD, no murmur Respiratory: chest non-tender, normal breath sounds, no respiratory distress, no accessory muscle use Peripheral Pulses: 1+ Dorsalis Pedis (R), 1+ Left Dors-Pedis (L), 1+ Radial Pulses (R), 1+ Radial Pulses (L) Gastrointestinal: normal bowel sounds, non tender, soft Back: normal inspection, no CVA tenderness, no vertebral tenderness Extremities: no pedal edema, no calf tenderness, normal capillary refill, other (TENDERNSS AND MILD SWELLING TO LEFT ELBOW AREA) Neurologic/Psychiatric: hat copyist II-XII nml as tested, no motor/sensory deficits, alert, normal mood/affect, other (ORIENTED TO PERSON AND KNOWS SHE IS IN HOSPITAL, BUT CONFUSED TO TIME AND EVENTS OF TONIGHT--VERY POOR MEMORY) Skin: normal color, warm/dry, other (PINPOINT LACERATION/PUNCTURE LEFT POSTERIOR OCCIPUT. NO BLEEDING AT THIS TIME. ) Procedures/Interventions Splinting and Joint Reduction : Arm Sling: [place] Progress/Results/Core Measures Results/Orders Lab Results Laboratory Tests Test 01/12/19 23:00 01/13/19 00:35 Range/Units White Blood Count 10.1 4.3-11.0 10^3/uL Red Blood Count 4.30 L 4.35-5.85 10^6/uL Hemoglobin 13.3 11.5-16.0 G/DL Hematocrit 41 35-52 % Mean Corpuscular Volume 95 80-99 FL Mean Corpuscular Hemoglobin 31 25-34 PG Mean Corpuscular Hemoglobin Concent 32 32-36 G/DL Red Cell Distribution Width 16.6 H 10.0-14.5 % Platelet Count 224 130-400 10^3/uL Mean Platelet Volume 11.3 H 7.4-10.4 FL Neutrophils (%) (Auto) 67 42-75 % Lymphocytes (%) (Auto) 21 12-44 % Monocytes (%) (Auto) 9 0-12 % Eosinophils (%) (Auto) 3 0-10 % Basophils (%) (Auto) 1 0-10 % Neutrophils # (Auto) 6.7 1.8-7.8 X 10^3 Lymphocytes # (Auto) 2.1 1.0-4.0 X 10^3 Monocytes # (Auto) 0.9 0.0-1.0 X 10^3 Eosinophils # (Auto) 0.3 0.0-0.3 10^3/uL Basophils # (Auto) 0.1 0.0-0.1 10^3/uL Prothrombin Time 12.5 12.2-14.7 SEC INR Comment 0.9 0.8-1.4 Activated Partial Thromboplast Time 27 24-35 SEC Sodium Level 140 135-145 MMOL/L Potassium Level 4.1 3.6-5.0 MMOL/L Chloride Level 103 98-107 MMOL/L Carbon Dioxide Level 25 21-32 MMOL/L Anion Gap 12 5-14 MMOL/L Blood Urea Nitrogen 14 7-18 MG/DL Creatinine 1.34 H 0.60-1.30 MG/DL Estimat Glomerular Filtration Rate 38 BUN/Creatinine Ratio 10 Glucose Level 99 70-105 MG/DL Calcium Level 10.4 H 8.5-10.1 MG/DL Corrected Calcium 10.5 H 8.5-10.1 MG/DL Magnesium Level 2.1 1.8-2.4 MG/DL Total Bilirubin 0.4 0.1-1.0 MG/DL Aspartate Amino Transf (AST/SGOT) 30 5-34 U/L Alanine Aminotransferase (ALT/SGPT) 18 0-55 U/L Alkaline Phosphatase 123 40-136 U/L Troponin I < 0.028 <0.028 NG/ML Total Protein 7.0 6.4-8.2 GM/DL Albumin 3.9 3.2-4.5 GM/DL Urine Color YELLOW Urine Clarity SLIGHTLY CLOUDY Urine pH 6 5-9 Urine Specific [place] 1.015 L 1.016-1.022 Urine Protein NEGATIVE NEGATIVE Urine Glucose (UA) NEGATIVE NEGATIVE Urine Ketones NEGATIVE NEGATIVE Urine Nitrite POSITIVE H NEGATIVE Urine Bilirubin NEGATIVE NEGATIVE Urine Urobilinogen NORMAL NORMAL MG/DL Urine Leukocyte Esterase 3+ H NEGATIVE Urine RBC (Auto) 1+ H NEGATIVE Urine RBC NONE /HPF Urine WBC 25-50 H /HPF Urine Squamous Epithelial Cells 0-2 /HPF Urine Crystals NONE /LPF Urine Bacteria LARGE H /HPF Urine Casts NONE /LPF Urine Mucus NEGATIVE /LPF Urine Culture Indicated YES My Orders Orders - SOL DUNN DO Saline Lock/Iv-Start (01/12/19 23:01) Ekg Tracing (2/11/19 23:01) Monitor-Rhythm Ecg Trace Only (01/12/19 23:) Ct Head/Cervical Spine Wo (01/12/19:) Ct Thoracic/Lumbar Spine Wo (01/12/19) Cbc With Automated Diff (01/12/19) Comprehensive Metabolic Panel (01/12/19) Magnesium (01/12/19) Protime With Inr (01/12/19) Partial Thromboplastin Time (01/12/19) Troponin I (01/12/19) Ua Culture If Indicated (01/12/19) Chest 1 View, Ap/Pa Only (01/12/19) Humerus, Left, 2 Views (01/12/19) Elbow, Left, 3 Views (01/12/19) Pelvis (01/12/19:) Dipht,Pertuss(Acell),Tet Adult (Boostrix (01/12/19:) Urine Culture (01/13/19 00:35) Ceftriaxone For Iv Use (Rocephin For I (01/13/19 01:15) Ketorolac Injection (Toradol Injection) (01/13/19 01:15) Ketorolac Injection (Toradol Injection) (01/13/19 01:05) Ed Ortho Supplies Order (01/13/19 01:13) Medications Given in ED Current Medications Medications Dose Ordered Sig/Pat Route Start Time Stop Time Status Last Admin Dose Admin Ceftriaxone Sodium 1000 mg/ Sterile Water 10 ml @ 200 mls/hr ONCE ONCE IV 01/13/19 01:15 01/13/19 01:17 DC 01/13/19 01:14 200 MLS/HR Ketorolac Tromethamine 30 mg STK-MED ONCE .ROUTE 01/13/19 01:05 01/13/19 01:10 DC 01/13/19 01:14 15 MG Vital Signs/I&O 01/12/19 01/13/19 22:50 01:56 Temp 97.9 97.9 Pulse 69 69 Resp 20 20 B/P (MAP) 123/77 (92) 125/78 (94) Pulse Ox 100 Progress Progress Note : Progress Note NO BLEEDING FROM WOUND, AND WOUND IS PINPOINT--NO REPAIR REQUIRED. UNEVENTFUL ER STAY SON ARRIVES LATER AND AGREES THAT PT IS AT HER NORMAL BASELINE. Initial ECG Impression Date: Jan 12, 2019 Initial ECG Impression Time: 23:37 Initial ECG Rate: 64 Initial ECG Rhythm: Normal Sinus Initial ECG Impression: Normal Diagnostic Imaging Comments CXR--NO ACUTE PROCESS PELVIS XRAY--NO ACUTE PROCESS XRAYS LEFT HUMERUS AND ELBOW--FX OLECRANON ALL PENDING RADIOLOGIST REVIEW CT THORACIC/LUMBAR SPINE--NO ACUTE PROCESS, OLD T2 AND T3 COMPRESSION FRACTURES- -PER [facility] VIA FAX @ [id number] CT HEAD/CERVICAL SPINE--NO ACUTE PROCESS, PER [facility] VIA FAX @ [id number] Reviewed: Reviewed by Me Departure Impression Primary Impression: S/P FALL VS SYNCOPE Additional Impressions: Closed fracture of left olecranon process Head contusion MINOR SCALP LACERATION UTI (urinary tract infection) Lgiefunsrj-ewfephvtc-vutrkxg (DPT) vaccination administered at current visit Disposition: 03 XFER SNF Condition: Stable Departure-Patient Inst. Referrals: KEVIN MASSEY MD (PCP/Family) Primary Care Physician GADIEL BARBER MD 4 STATES Patient Instructions: Closed Head Injury (DC), Diphtheria and Tetanus Toxoids, and Acellular Pertussis Vaccine, Elbow Fracture (DC), How to Use a Shoulder Sling, Preventing Falls in the Older Adult, Urinary Tract Infection, Adult (DC) , Wound Care (DC) Add. Discharge Instructions: ICE TO LEFT ELBOW AT 20 MINUTE INTERVALS WEAR SLING AT ALL TIMES NEEDS ASSIST WITH ALL ACTIVITIES TYLENOL NEEDED FOR PAIN FOLLOW UP WITH DR. BARBER/CYNTHIA 4 STATES THIS WEEK FOR FURTHER CARE FOLLOW UP WITH DR. MASSEY IN 1 WEEK FOR RECHECK OF URINE All discharge instructions reviewed with patient and/or family. Voiced understanding. Scripts Sulfamethoxazole/Trimethoprim (Bactrim Ds Tablet) 1 Each Tablet 1 EACH PO BID, #20 TAB Prov: SOL DUNN DO 01/13/19 SOL DUNN DO Jan 13, 2019 01:12
[2019-01-13] MEDS ORDERED: cefTRIAXone FOR IV USE 1,000 MG in WATER (STERILE) FOR INJECTION 10 ML IV ONE (01:15)
[2019-01-13] MEDS ORDERED: KETOROLAC 15 MG/ML VIAL IVP ONE (01:15)
[2019-01-13 01:56] VITALS: BP 125/78
--- NOTE | 2019-01-13 06:18 | Diagnostic Imaging Report ---
INDICATION: Pain post fall TECHNIQUE: AP pelvis CORRELATION STUDY: None FINDINGS: Moderate amount of overlying bowel gas and stool. Given this, there is no acute displaced pelvic fracture. SI joints and pubic symphysis maintained. Advanced degenerative changes of both hips with joint space narrowing. IMPRESSION: Negative for acute displaced pelvic fracture. Dictated by: Dictated on workstation # [id number]
--- NOTE | 2019-01-13 06:22 | Diagnostic Imaging Report ---
INDICATION: Status post fall. TECHNIQUE: Single view chest 11:29 PM. CORRELATION STUDY: 07/05/2014 FINDINGS: Heart size and vasculature within normal limits. Coronary artery stent over the left heart margins. Suggestion of chronic bruising about the lung parenchyma. No infiltrate, effusion or pneumothorax. No definitive displaced fracture. IMPRESSION: 1. Negative for acute traumatic abnormality about the chest. Dictated by: Dictated on workstation # [id number]
--- NOTE | 2019-01-13 06:26 | Diagnostic Imaging Report ---
INDICATION: Pain post fall TECHNIQUE: 2 views of the right humerus CORRELATION STUDY: None FINDINGS: The humerus is intact. Visualized portions of the shoulder demonstrate degenerative changes but otherwise unremarkable. There is a nondisplaced fracture involving the olecranon of the proximal ulna. IMPRESSION: 1. Negative for acute bony abnormality of the humerus. 2. Partial visualization nondisplaced fracture at the proximal ulna. Dictated by: Dictated on workstation # [id number]
--- NOTE | 2019-01-13 07:01 | Diagnostic Imaging Report ---
INDICATION: Fall, pain TECHNIQUE: 3 views of the right elbow CORRELATION STUDY: None FINDINGS: Suboptimal positioning. There is diffuse bony demineralization. There is relatively nondisplaced fracture involving the olecranon of the proximal ulna. Alignment appears to be near anatomic. Distal humerus and proximal radius is maintained. IMPRESSION: 1. Nondisplaced fracture of the proximal ulna. Findings noted at emergency department physician note. Dictated by: Dictated on workstation # [id number]
--- NOTE | 2019-01-13 07:12 | Diagnostic Imaging Report ---
INDICATION: Pain post fall. TECHNIQUE: Noncontrast CT imaging of thoracic and lumbar spine with sagittal and coronal reformatted images. CORRELATION STUDY: None FINDINGS: The thoracic spine demonstrates rightward curvature. Alignment otherwise relatively anatomic. There is what appears to be nonacute appearing fracture involving the superior endplates of T2 and T3. No significant loss of vertebral body height. Diffuse thoracic spondylosis with disc space narrowing and endplate osteophyte formation. Posterior elements intact. Lumbar spine demonstrates trace anterolisthesis of L4 on L5, likely degenerative. Alignment otherwise anatomic. Lumbar vertebral body heights maintained. No significant osseous narrowing of the spinal canal and/or foramina. Note is made of moderate severity atherosclerotic change about the thoracic and abdominal aorta. Dense carotid artery vascular calcification on the left. IMPRESSION: 1. Negative for acute fracture thoracic spine. 2. Negative for acute fracture lumbar spine. 3. Diffuse thoracic and lumbar spondylosis present. 4. Atherosclerotic vascular calcifications including the moderate calcification left carotid artery bifurcation. Narrowing not excluded. A preliminary report was provided by [facility]. Dictated by: Dictated on workstation # [id number]
--- NOTE | 2019-01-13 08:35 | Diagnostic Imaging Report ---
PROCEDURE: CT head and CT cervical spine without contrast. TECHNIQUE: Multiple contiguous axial images were obtained through the brain and cervical spine without the use of intravenous contrast. Sagittal and coronal reformations through the cervical spine were then performed. INDICATION: Status post fall, hitting back of head with loss of consciousness. Neck pain. CORRELATION STUDY: None FINDINGS: CT HEAD: Generalized atrophic changes with prominence of the ventricles and sulci. Scattered areas of decreased attenuation while nonspecific favor likely changes of small vessel ischemic disease. Subtle areas of edema could easily go undetected. No suggestion for intracranial hemorrhage or abnormal extra-axial fluid collection. No midline shift or mass effect. Posterior scalp edema is noted to the left of midline. Bony calvarium intact. The paranasal sinuses and mastoid air cells demonstrate a few areas of mucosal thickening. No air-fluid levels. CT CERVICAL SPINE: There is some straightening of the normal cervical lordosis. Trace anterolisthesis C3 on C4. Vertebral body heights maintained. Multilevel disc space narrowing. This is most pronounced at the C4-C5, C5-C6, and C6-C7 levels. Endplate spurring and osteophytes result in osseous encroachment and narrowing of the neuroforamina and to a lesser degree spinal canal. Posterior elements are intact with asymmetric hypertrophic facet arthropathy. The odontoid intact. Paraspinal soft tissues appearing unremarkable. IMPRESSION: CT HEAD: 1. Negative for acute traumatic intracranial abnormality. Shallow left posterior scalp hematoma. CT CERVICAL SPINE: 1. Negative for acute fracture or traumatic subluxation. 2. Rather advanced multilevel cervical spondylosis is present. Osseous encroachment with resultant narrowing of spinal canal and foramina at multiple levels. A preliminary report was provided by [facility]. Dictated by: Dictated on workstation # [id number]
== END 2019-01-13 01:33 ==
LOC: EDUNIT# 22:50 → ER 22:51
DX: S52.022A Displaced fracture of olecranon process without intraarticular extension of left ulna, initial encounter for closed fracture (principal); S01.01XA Laceration without foreign body of scalp, initial encounter; F03.90 Unspecified dementia, unspecified severity, without behavioral disturbance, psychotic disturbance, mood disturbance, and anxiety; J44.9 Chronic obstructive pulmonary disease, unspecified; I25.10 Atherosclerotic heart disease of native coronary artery without angina pectoris; N39.0 Urinary tract infection, site not specified; E78.00 Pure hypercholesterolemia, unspecified; I10 Essential (primary) hypertension; I73.9 Peripheral vascular disease, unspecified; M06.9 Rheumatoid arthritis, unspecified; E03.9 Hypothyroidism, unspecified; Z86.19 Personal history of other infectious and parasitic diseases; Z87.440 Personal history of urinary (tract) infections; Z95.5 Presence of coronary angioplasty implant and graft; Z98.61 Coronary angioplasty status; Z98.890 Other specified postprocedural states; Z23 Encounter for immunization; Z90.710 Acquired absence of both cervix and uterus; Z89.422 Acquired absence of other left toe(s); Z90.49 Acquired absence of other specified parts of digestive tract; Z79.82 Long term (current) use of aspirin; Z79.52 Long term (current) use of systemic steroids; W18.30XA Fall on same level, unspecified, initial encounter
CPT/HCPCS: 36415; 70450; 71045; 72125; 72128; 72131; 72170; 73060; 73080; 80053; 81000; 83735; 84484; 85025; 85610; 85730; 87077; 87088; 90715; 93005; 93041

== ENCOUNTER → 2019-03-11 | Outpatient (CLI) | payer OTHER ==
[~2019-03-11] MED LIST changes: +SULF1TAB35 PO
--- NOTE | 2019-03-11 17:15 | Diagnostic Imaging Report ---
INDICATION: Left elbow ulcer. COMPARISON: Study from 01/12/2019. FINDINGS: Two views of the left elbow were obtained. An ununited fracture of the olecranon that extends to the articular surface. There is no appreciable joint effusion. IMPRESSION: The fracture of the olecranon process may be healing by fibrous union. Dictated by: Dictated on workstation # [id number]
== END ==
LOC: RAD 14:46
PROVIDERS: ATTEND Surgery
DX: L89.024 Pressure ulcer of left elbow, stage 4 (principal); S42.402A Unspecified fracture of lower end of left humerus, initial encounter for closed fracture; F03.90 Unspecified dementia, unspecified severity, without behavioral disturbance, psychotic disturbance, mood disturbance, and anxiety; M05.742 Rheumatoid arthritis with rheumatoid factor of left hand without organ or systems involvement
CPT/HCPCS: 73080

== ENCOUNTER → 2019-03-11 | Outpatient (CLI) | payer OTHER | LOC: WOUNDCARE 13:24 | PROVIDERS: ATTEND Surgery | DX: L89.024 Pressure ulcer of left elbow, stage 4 (principal); S42.402D Unspecified fracture of lower end of left humerus, subsequent encounter for fracture with routine healing; F03.90 Unspecified dementia, unspecified severity, without behavioral disturbance, psychotic disturbance, mood disturbance, and anxiety; M05.742 Rheumatoid arthritis with rheumatoid factor of left hand without organ or systems involvement | CPT/HCPCS: 99213 ==

== ENCOUNTER → 2019-03-13 | Outpatient (CLI) | payer OTHER | LOC: CVS 19:37 | PROVIDERS: ATTEND Family Medicine | DX: R82.998 Other abnormal findings in urine (principal) | CPT/HCPCS: 87088 ==

== ENCOUNTER → 2019-03-17 | Outpatient (CLI) | payer OTHER | LOC: WOUNDCARE 13:01 | PROVIDERS: ATTEND Surgery | DX: L89.024 Pressure ulcer of left elbow, stage 4 (principal); M05.742 Rheumatoid arthritis with rheumatoid factor of left hand without organ or systems involvement; S42.402D Unspecified fracture of lower end of left humerus, subsequent encounter for fracture with routine healing; F03.90 Unspecified dementia, unspecified severity, without behavioral disturbance, psychotic disturbance, mood disturbance, and anxiety; E44.1 Mild protein-calorie malnutrition | CPT/HCPCS: 99213 ==

== ENCOUNTER → 2019-03-23 | Outpatient (CLI) | payer OTHER | LOC: WOUNDCARE 14:56 | PROVIDERS: ATTEND Surgery | DX: L89.024 Pressure ulcer of left elbow, stage 4 (principal); M05.742 Rheumatoid arthritis with rheumatoid factor of left hand without organ or systems involvement; S42.402D Unspecified fracture of lower end of left humerus, subsequent encounter for fracture with routine healing; F03.90 Unspecified dementia, unspecified severity, without behavioral disturbance, psychotic disturbance, mood disturbance, and anxiety; E44.1 Mild protein-calorie malnutrition | CPT/HCPCS: 99212 ==

== ENCOUNTER → 2019-04-01 | Outpatient (CLI) | payer OTHER | LOC: WOUNDCARE 14:55 | PROVIDERS: ATTEND Surgery | DX: L89.024 Pressure ulcer of left elbow, stage 4 (principal); M05.742 Rheumatoid arthritis with rheumatoid factor of left hand without organ or systems involvement; S42.402D Unspecified fracture of lower end of left humerus, subsequent encounter for fracture with routine healing; F03.90 Unspecified dementia, unspecified severity, without behavioral disturbance, psychotic disturbance, mood disturbance, and anxiety; E44.1 Mild protein-calorie malnutrition | CPT/HCPCS: 99212 ==

== ENCOUNTER → 2019-04-14 | Outpatient (CLI) | payer OTHER | LOC: WOUNDCARE 14:23 | PROVIDERS: ATTEND Surgery | DX: L89.024 Pressure ulcer of left elbow, stage 4 (principal); M05.742 Rheumatoid arthritis with rheumatoid factor of left hand without organ or systems involvement; F03.90 Unspecified dementia, unspecified severity, without behavioral disturbance, psychotic disturbance, mood disturbance, and anxiety; S42.402D Unspecified fracture of lower end of left humerus, subsequent encounter for fracture with routine healing; X58.XXXD Exposure to other specified factors, subsequent encounter | CPT/HCPCS: 99212 ==

== ENCOUNTER → 2019-04-20 | Outpatient (CLI) | payer OTHER | LOC: WOUNDCARE 14:58 | PROVIDERS: ATTEND Surgery | DX: L89.024 Pressure ulcer of left elbow, stage 4 (principal); M05.742 Rheumatoid arthritis with rheumatoid factor of left hand without organ or systems involvement; F03.90 Unspecified dementia, unspecified severity, without behavioral disturbance, psychotic disturbance, mood disturbance, and anxiety; S42.402D Unspecified fracture of lower end of left humerus, subsequent encounter for fracture with routine healing; X58.XXXD Exposure to other specified factors, subsequent encounter | CPT/HCPCS: 11042 ==

== ENCOUNTER → 2019-05-04 | Outpatient (CLI) | payer OTHER | LOC: WOUNDCARE 15:00 | PROVIDERS: ATTEND Surgery | DX: L89.024 Pressure ulcer of left elbow, stage 4 (principal); M05.742 Rheumatoid arthritis with rheumatoid factor of left hand without organ or systems involvement; F03.90 Unspecified dementia, unspecified severity, without behavioral disturbance, psychotic disturbance, mood disturbance, and anxiety; E44.0 Moderate protein-calorie malnutrition; S42.402D Unspecified fracture of lower end of left humerus, subsequent encounter for fracture with routine healing; X58.XXXD Exposure to other specified factors, subsequent encounter | CPT/HCPCS: 99212 ==

== ENCOUNTER → 2019-05-12 | Outpatient (CLI) | payer OTHER | LOC: WOUNDCARE 15:35 | PROVIDERS: ATTEND Surgery | DX: L89.024 Pressure ulcer of left elbow, stage 4 (principal); M05.742 Rheumatoid arthritis with rheumatoid factor of left hand without organ or systems involvement; F03.90 Unspecified dementia, unspecified severity, without behavioral disturbance, psychotic disturbance, mood disturbance, and anxiety; E44.0 Moderate protein-calorie malnutrition | CPT/HCPCS: 99212 ==

== ENCOUNTER 2019-05-15 13:42 | Emergency (ER) | payer OTHER ==
[~2019-05-15] VITALS: Ht 180.3 cm; Wt 40.8 kg
--- OUTSIDE RECORDS SUMMARY | 2019-05-15 13:47 | XMS REPORT | Continuity of Care Document ---
Author Organization Unknown Address Unknown Allergies Active Description Code Type Severity Reaction Onset Reported/Identified Relationship to Patient Clinical Status Yes No Known Drug Allergies [id number] Drug Allergy Unknown N/A 11/26/2012 Medications There is no data. 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 11/26/2012 Ot 275.2 DIS MAGNESIUM METABOLISM 11/26/2012 Ot 276.2 ACIDOSIS 11/26/2012 Ot 276.69 OTHER FLUID OVERLOAD 11/26/2012 Ot 276.8 HYPOPOTASSEMIA 11/26/2012 Ot 285.1 AC POSTHEMORRHAG ANEMIA 11/26/2012 Ot 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 11/26/2012 Ot 401.9 HYPERTENSION NOS 11/26/2012 Ot 414.01 CORONARY ATHEROSCLEROSIS OF [place] CORON 11/26/2012 Ot 496 CHR AIRWAY OBSTRUCT NEC 11/26/2012 Ot 512.1 IATROGENIC PNEUMOTHORAX 11/26/2012 Ot 714.0 RHEUMATOID ARTHRITIS 11/26/2012 Ot 785.59 SHOCK W/O TRAUMA NEC 11/26/2012 Ot 998.11 HEMOR COMPLIC A PROCEDURE 11/26/2012 Ot 998.2 ACCIDENTAL OP LACERATION 11/26/2012 Ot 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 12/01/2012 Ot 276.8 12/01/2012 Ot 285.9 12/01/2012 Ot 288.60 12/01/2012 Ot 401.9 12/01/2012 Ot 414.01 12/01/2012 Ot 584.9 12/01/2012 Ot 782.4 12/01/2012 Ot E932.0 12/01/2012 Ot V45.82 12/01/2012 Ot V57.1 12/01/2012 Ot V57.21 08/19/2013 KEVIN MASSEY MD Ot 785.1 PALPITATIONS 11/10/2015 Ot 496 11/10/2015 Ot 729.5 11/10/2015 [...] 11/10/2015 Ot 586 11/10/2015 Ot 785.1 11/10/2015 ROSITA PENG PATIENT FINANCIAL SERVICES MANAGER Ot 496 11/10/2015 ROSITA PENG PATIENT FINANCIAL SERVICES MANAGER Ot 786.2 12/01/2015 HASEEB ROBERTS RADIOLOGY ORDERLY Ot M25.552 12/01/2015 HASEEB ROBERTS RADIOLOGY ORDERLY Ot W19.XXXA 12/01/2015 HASEEB ROBERTS RADIOLOGY ORDERLY Ot Y99.8 03/02/2017 Ot 714.0 RHEUMATOID ARTHRITIS 03/02/2017 Ot 727.1 BUNION 03/02/2017 Ot 730.27 OSTEOMYELITIS NOS-ANKLE 04/01/2017 Ot 714.0 RHEUMATOID ARTHRITIS 04/01/2017 Ot 727.1 BUNION 04/01/2017 Ot 730.27 OSTEOMYELITIS NOS-ANKLE 01/13/2019 MONA SOL MÁRQUEZ Ot E03.9 HYPOTHYROIDISM, UNSPECIFIED 01/13/2019 MONA SOL MÁRQUEZ Ot E78.00 PURE HYPERCHOLESTEROLEMIA, UNSPECIFIED 01/13/2019 MONA SOL MÁRQUEZ Ot F03.90 UNSPECIFIED DEMENTIA WITHOUT BEHAVIORAL 01/13/2019 MONA SOL MÁRQUEZ Ot I10 ESSENTIAL (PRIMARY) HYPERTENSION 01/13/2019 MONA DOSOL Ot I25.10 ATHSCL HEART DISEASE OF [place] CORONARY 01/13/2019 MONA SOL MÁRQUEZ Ot I73.9 PERIPHERAL VASCULAR DISEASE, UNSPECIFIED 01/13/2019 MONA SOL MÁRQUEZ Ot J44.9 CHRONIC OBSTRUCTIVE PULMONARY DISEASE, U 01/13/2019 MONA SOL MÁRQUEZ Ot M06.9 RHEUMATOID ARTHRITIS, UNSPECIFIED 01/13/2019 MONA DOSOL Ot M25.522 PAIN IN LEFT ELBOW 01/13/2019 MONA SOL MÁRQUEZ Ot N39.0 URINARY TRACT INFECTION, SITE NOT SPECIF 01/13/2019 MONA SOL MÁRQUEZ Ot S01.01XA LACERATION WITHOUT FOREIGN BODY OF SCALP 01/13/2019 MONA SOL MÁRQUEZ Ot S52.022A DISP FX OF OLECRAN PRO W/O INTARTIC EXTN 01/13/2019 SOL DUNN DO Ot W18.30XA FALL ON SAME LEVEL, UNSPECIFIED, INITIAL 01/13/2019 SOL DUNN DO Ot Z23 ENCOUNTER FOR IMMUNIZATION 01/13/2019 SOL DUNN DO Ot Z79.52 SENIOR LIVING (CURRENT) USE OF SYSTEMIC STER 01/13/2019 SOL DUNN DO Ot Z79.82 SENIOR LIVING (CURRENT) USE OF ASPIRIN 01/13/2019 SOL DUNN DO, Ot Z86.19 PERSONAL HISTORY OF OTHER INFECTIOUS AND 01/13/2019 MONA SOL MÁRQUEZ Ot Z87.440 PERSONAL HISTORY OF URINARY (TRACT) INFE 01/13/2019 SOL DUNN DO Ot Z89.422 ACQUIRED ABSENCE OF OTHER LEFT TOE(S) 01/13/2019 SOL DUNN DO Ot Z90.49 ACQUIRED ABSENCE OF OTHER SPECIFIED PART 01/13/2019 SOL DUNN DO Ot Z90.710 ACQUIRED ABSENCE OF BOTH CERVIX AND UTER 01/13/2019 SOL DUNN DO Ot Z95.5 PRESENCE OF CORONARY ANGIOPLASTY IMPLANT 01/13/2019 SOL DUNN DO Ot Z98.61 CORONARY ANGIOPLASTY STATUS 01/13/2019 SOL DUNN DO Ot Z98.890 OTHER SPECIFIED POSTPROCEDURAL STATES 01/13/2019 ROSITA PENG PATIENT FINANCIAL SERVICES MANAGER Ot 496 CHR AIRWAY OBSTRUCT NEC 01/13/2019 ROSITA PENG PATIENT FINANCIAL SERVICES MANAGER Ot 786.2 COUGH 01/13/2019 ROBERTS, HASEEB L RADIOLOGY ORDERLY Ot M25.552 PAIN IN LEFT HIP 01/13/2019 ROBERTS, HASEEB L RADIOLOGY ORDERLY Ot W19.XXXA UNSPECIFIED FALL, INITIAL ENCOUNTER 01/13/2019 ROBERTS, HASEEB L RADIOLOGY ORDERLY Ot Y99.8 OTHER EXTERNAL CAUSE STATUS 01/13/2019 Ot 785.1 PALPITATIONS 01/13/2019 ROSITA PENG PATIENT FINANCIAL SERVICES MANAGER Ot 496 CHR AIRWAY OBSTRUCT NEC 01/13/2019 ROSITA PENG PATIENT FINANCIAL SERVICES MANAGER Ot 786.2 COUGH 01/13/2019 ROBERTS, HASEEB L RADIOLOGY ORDERLY Ot M25.552 PAIN IN LEFT HIP 01/13/2019 ROBERTS, HASEEB L RADIOLOGY ORDERLY Ot W19.XXXA UNSPECIFIED FALL, INITIAL ENCOUNTER 01/13/2019 ROBERTS, HASEEB L RADIOLOGY ORDERLY Ot Y99.8 OTHER EXTERNAL CAUSE STATUS 01/13/2019 Ot 785.1 PALPITATIONS 01/13/2019 ROSITA PENG PATIENT FINANCIAL SERVICES MANAGER Ot 496 CHR AIRWAY OBSTRUCT NEC 01/13/2019 ROSITA PENG PATIENT FINANCIAL SERVICES MANAGER Ot 786.2 COUGH 01/13/2019 ROBERTS, HASEEB L RADIOLOGY ORDERLY Ot M25.552 PAIN IN LEFT HIP 01/13/2019 ROBERTS, HASEEB L RADIOLOGY ORDERLY Ot W19.XXXA UNSPECIFIED FALL, INITIAL ENCOUNTER 01/13/2019 ROBERTS, HASEEB L RADIOLOGY ORDERLY Ot Y99.8 OTHER EXTERNAL CAUSE STATUS 01/14/2019 SOL DUNN DO [place] Ot E03.9 HYPOTHYROIDISM, UNSPECIFIED 01/14/2019 MONA DOCASTROA [place] Ot E78.00 PURE HYPERCHOLESTEROLEMIA, UNSPECIFIED 01/14/2019 MONA SOL MÁRQUEZ Ot F03.90 UNSPECIFIED DEMENTIA WITHOUT BEHAVIORAL 01/14/2019 MONA SOL MÁRQUEZ Ot I10 ESSENTIAL (PRIMARY) HYPERTENSION 01/14/2019 MONA SOL MÁRQUEZ Ot I25.10 ATHSCL HEART DISEASE OF [place] CORONARY 01/14/2019 MONA SOL MÁRQUEZ Ot I73.9 PERIPHERAL VASCULAR DISEASE, UNSPECIFIED 01/14/2019 MONA SOL MÁRQUEZ Ot J44.9 CHRONIC OBSTRUCTIVE PULMONARY DISEASE, U 01/14/2019 MONA SOL MÁRQUEZ Ot M06.9 RHEUMATOID ARTHRITIS, UNSPECIFIED 01/14/2019 [place] SOL MÁRQUEZ Ot M25.522 PAIN IN LEFT ELBOW 01/14/2019 MONA SOL MÁRQUEZ Ot N39.0 URINARY TRACT INFECTION, SITE NOT SPECIF 01/14/2019 MONA SOL MÁRQUEZ Ot S01.01XA LACERATION WITHOUT FOREIGN BODY OF SCALP 01/14/2019 MONA SOL MÁRQUEZ Ot S52.022A DISP FX OF OLECRAN PRO W/O INTARTIC EXTN 01/14/2019 MONA SOL MÁRQUEZ Ot W18.30XA FALL ON SAME LEVEL, UNSPECIFIED, INITIAL 01/14/2019 SOL DUNN DO, Ot Z23 ENCOUNTER FOR IMMUNIZATION 01/14/2019 SOL DUNN DO Ot Z79.52 SENIOR LIVING (CURRENT) USE OF SYSTEMIC STER 01/14/2019 MONA SOL MÁRQUEZ Ot Z79.82 SENIOR LIVING (CURRENT) USE OF ASPIRIN 01/14/2019 MONA SOL MÁRQUEZ Ot Z86.19 PERSONAL HISTORY OF OTHER INFECTIOUS AND 01/14/2019 [place] SOL MÁRQUEZ Ot Z87.440 PERSONAL HISTORY OF URINARY (TRACT) INFE 01/14/2019 MONA SOL MÁRQUEZ Ot Z89.422 ACQUIRED ABSENCE OF OTHER LEFT TOE(S) 01/14/2019 SOL DUNN DO Ot Z90.49 ACQUIRED ABSENCE OF OTHER SPECIFIED PART 01/14/2019 MONA SOL MÁRQUEZ Ot Z90.710 ACQUIRED ABSENCE OF BOTH CERVIX AND UTER 01/14/2019 MONA SOL MÁRQUEZ Ot Z95.5 PRESENCE OF CORONARY ANGIOPLASTY IMPLANT 01/14/2019 MONA SOL MÁRQUEZ Ot Z98.61 CORONARY ANGIOPLASTY STATUS 01/14/2019 [place] SOL MÁRQUEZ Ot Z98.890 OTHER SPECIFIED POSTPROCEDURAL STATES 01/14/2019 MONA SOL MÁRQUEZ Ot E03.9 HYPOTHYROIDISM, UNSPECIFIED 01/14/2019 [place] SOL MÁRQUEZ Ot E78.00 PURE HYPERCHOLESTEROLEMIA, UNSPECIFIED 01/14/2019 [place] SOL MÁRUQEZ Ot F03.90 UNSPECIFIED DEMENTIA WITHOUT BEHAVIORAL 01/14/2019 [place] SOL MÁRQUEZ Ot I10 ESSENTIAL (PRIMARY) HYPERTENSION 01/14/2019 [place] [employer] [facility] Ot I25.10 ATHSCL HEART DISEASE OF [place] CORONARY 01/14/2019 [place] [employer] [facility] Ot I73.9 PERIPHERAL VASCULAR DISEASE, UNSPECIFIED 01/14/2019 [place] [employer] [facility] Ot J44.9 CHRONIC OBSTRUCTIVE PULMONARY DISEASE, U 01/14/2019 [place] SOL MÁRQUEZ Ot M06.9 RHEUMATOID ARTHRITIS, UNSPECIFIED 01/14/2019 [place] [employer] [facility] Ot M25.522 PAIN IN LEFT ELBOW 01/14/2019 [place] [employer] [facility] Ot N39.0 URINARY TRACT INFECTION, SITE NOT SPECIF 01/14/2019 [place] SOL MÁRQUEZ Ot S01.01XA LACERATION WITHOUT FOREIGN BODY OF SCALP 01/14/2019 [place] [employer] [facility] Ot S52.022A DISP FX OF OLECRAN PRO W/O INTARTIC EXTN 01/14/2019 [place] SOL MÁRQUEZ Ot W18.30XA FALL ON SAME LEVEL, UNSPECIFIED, INITIAL 01/14/2019 SOL DUNN DO Ot Z23 ENCOUNTER FOR IMMUNIZATION 01/14/2019 MONA SOL MÁRQUEZ Ot Z79.52 FOXER (CURRENT) USE OF SYSTEMIC STER 01/14/2019 [place] SOL MÁRQUEZ Ot Z79.82 SENIOR LIVING (CURRENT) USE OF ASPIRIN 01/14/2019 [place] SOL MÁRQUEZ Ot Z86.19 PERSONAL HISTORY OF OTHER INFECTIOUS AND 01/14/2019 MONA OSL MÁRQUEZ Ot Z87.440 PERSONAL HISTORY OF URINARY (TRACT) INFE 01/14/2019 MONA SOL MÁRQUEZ Ot Z89.422 ACQUIRED ABSENCE OF OTHER LEFT TOE(S) 01/14/2019 MONA SOL MÁRQUEZ Ot Z90.49 ACQUIRED ABSENCE OF OTHER SPECIFIED PART 01/14/2019 [place] SOL MÁRQUEZ Ot Z90.710 ACQUIRED ABSENCE OF BOTH CERVIX AND UTER 01/14/2019 MONA SOL MÁRQUEZ Ot Z95.5 PRESENCE OF CORONARY ANGIOPLASTY IMPLANT 01/14/2019 [place] [employer] [facility] Ot Z98.61 CORONARY ANGIOPLASTY STATUS 01/14/2019 [place] SOL MÁRQUEZ Ot Z98.890 OTHER SPECIFIED POSTPROCEDURAL STATES 02/01/2019 Ot 785.1 PALPITATIONS 02/01/2019 Ot 785.1 PALPITATIONS 02/02/2019 [place] [employer] [facility] Ot E03.9 HYPOTHYROIDISM, UNSPECIFIED 02/02/2019 [place] [employer] [facility] Ot E78.00 PURE HYPERCHOLESTEROLEMIA, UNSPECIFIED 02/02/2019 [place] [employer] [facility] Ot F03.90 UNSPECIFIED DEMENTIA WITHOUT BEHAVIORAL 02/02/2019 [place] [employer] Ot I10 ESSENTIAL (PRIMARY) HYPERTENSION 02/02/2019 [place] [employer] Ot I25.10 ATHSCL HEART DISEASE OF [place] CORONARY 02/02/2019 [place] [employer] Ot I73.9 PERIPHERAL VASCULAR DISEASE, UNSPECIFIED 02/02/2019 [place] [employer] Ot J44.9 CHRONIC OBSTRUCTIVE PULMONARY DISEASE, U 02/02/2019 [place] SOL MÁRQUEZ Ot M06.9 RHEUMATOID ARTHRITIS, UNSPECIFIED 02/02/2019 [place] [employer] [facility] Ot M25.522 PAIN IN LEFT ELBOW 02/02/2019 [place] [employer] [facility] Ot N39.0 URINARY TRACT INFECTION, SITE NOT SPECIF 02/02/2019 [place] SOL MÁRQUEZ Ot S01.01XA LACERATION WITHOUT FOREIGN BODY OF SCALP 02/02/2019 [place] [employer] Ot S52.022A DISP FX OF OLECRAN PRO W/O INTARTIC EXTN 02/02/2019 MONA SOL MÁRQUEZ Ot W18.30XA FALL ON SAME LEVEL, UNSPECIFIED, INITIAL 02/02/2019 SOL DUNN DO, Ot Z23 ENCOUNTER FOR IMMUNIZATION 02/02/2019 MONA SOL MÁRQUEZ Ot Z79.52 FOXER (CURRENT) USE OF SYSTEMIC STER 02/02/2019 SOL DUNN DO, Ot Z79.82 SENIOR LIVING (CURRENT) USE OF ASPIRIN 02/02/2019 MONA SOL MÁRQUEZ Ot Z86.19 PERSONAL HISTORY OF OTHER INFECTIOUS AND 02/02/2019 MONA DO, SOL [place] Ot Z87.440 PERSONAL HISTORY OF URINARY (TRACT) INFE 02/02/2019 MONA DO, SOL Rose Ot Z89.422 ACQUIRED ABSENCE OF OTHER LEFT TOE(S) 02/02/2019 MONA DOSOL Ot Z90.49 ACQUIRED ABSENCE OF OTHER SPECIFIED PART 02/02/2019 MONA DOSOL Ot Z90.710 ACQUIRED ABSENCE OF BOTH CERVIX AND UTER 02/02/2019 MONA DO, SOL Rose Ot Z95.5 PRESENCE OF CORONARY ANGIOPLASTY IMPLANT 02/02/2019 MONA DOSOL Ot Z98.61 CORONARY ANGIOPLASTY STATUS 02/02/2019 [place] [employer], SOL Rose Ot Z98.890 OTHER SPECIFIED POSTPROCEDURAL STATES 03/11/2019 TK VALENCIA MD, Ot F03.90 UNSPECIFIED DEMENTIA WITHOUT BEHAVIORAL 03/11/2019 TK VALENCIA MD, Ot L89.024 PRESSURE ULCER OF LEFT ELBOW, STAGE 4 03/11/2019 TK VALENCIA MD, Ot M05.742 RHEU ARTHRITIS W RHEU FACTOR OF LEFT [place] 03/11/2019 TK VALENCIA MD, Ot S42.402A UNSP FRACTURE OF LOWER END OF LEFT HUMER 03/12/2019 TK VALENCIA MD, Ot F03.90 UNSPECIFIED DEMENTIA WITHOUT BEHAVIORAL 03/12/2019 TK VALENCIA MD, Ot L89.024 PRESSURE ULCER OF LEFT ELBOW, STAGE 4 03/12/2019 TK VALENCIA MD, Ot M05.742 RHEU ARTHRITIS W RHEU FACTOR OF LEFT [place] 03/12/2019 TK VALENCIA MD, Ot S42.402D UNSP FX LOWER END OF L HUMERUS, SUBS FOR 03/17/2019 TK VALENCIA MD, Ot F03.90 UNSPECIFIED DEMENTIA WITHOUT BEHAVIORAL 03/17/2019 TK VALENCIA MD, Ot L89.024 PRESSURE ULCER OF LEFT ELBOW, STAGE 4 03/17/2019 TK VALENCIA MD, Ot M05.742 RHEU ARTHRITIS W RHEU FACTOR OF LEFT [place] 03/17/2019 TK VALENCIA MD, Ot S42.402D UNSP FX LOWER END OF L HUMERUS, SUBS FOR 03/17/2019 TK VALENCIA MD, Ot F03.90 UNSPECIFIED DEMENTIA WITHOUT BEHAVIORAL 03/17/2019 TK VALENCIA MD, Ot L89.024 PRESSURE ULCER OF LEFT ELBOW, STAGE 4 03/17/2019 TK VALENCIA MD, Ot M05.742 RHEU ARTHRITIS W RHEU FACTOR OF LEFT [place] 03/17/2019 TK VALENCIA MD, Ot S42.402A UNSP FRACTURE OF LOWER END OF LEFT HUMER 03/17/2019 YECENIA REDMAN MD Ot R82.998 OTHER ABNORMAL FINDINGS IN URINE 03/18/2019 TK VALENCIA MD, Ot F03.90 UNSPECIFIED DEMENTIA WITHOUT BEHAVIORAL 03/18/2019 TK VALENCIA MD, Ot L89.024 PRESSURE ULCER OF LEFT ELBOW, STAGE 4 03/18/2019 TK VALENCIA MD, Ot M05.742 RHEU ARTHRITIS W RHEU FACTOR OF LEFT [place] 03/18/2019 TK VALENCIA MD, Ot S42.402D UNSP FX LOWER END OF L HUMERUS, SUBS FOR 03/18/2019 TK VALENCIA MD, Ot F03.90 UNSPECIFIED DEMENTIA WITHOUT BEHAVIORAL 03/18/2019 TK VALENCIA MD, Ot L89.024 PRESSURE ULCER OF LEFT ELBOW, STAGE 4 03/18/2019 TK VALENCIA MD, Ot M05.742 RHEU ARTHRITIS W RHEU FACTOR OF LEFT [place] 03/18/2019 TK VALENCIA MD, Ot S42.402A UNSP FRACTURE OF LOWER END OF LEFT HUMER 03/18/2019 YECENIA REDMAN MD Ot R82.998 OTHER ABNORMAL FINDINGS IN URINE 03/18/2019 TK VALENCIA MD, Ot 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 03/18/2019 TK VALENCIA MD, Ot F03.90 UNSPECIFIED DEMENTIA WITHOUT BEHAVIORAL 03/18/2019 TK VALENCIA MD, Ot L89.024 PRESSURE ULCER OF LEFT ELBOW, STAGE 4 03/18/2019 TK VALENCIA MD, Ot M05.742 RHEU ARTHRITIS W RHEU FACTOR OF LEFT [place] 03/18/2019 TK VALENCIA MD, Ot S42.402D UNSP FX LOWER END OF L HUMERUS, SUBS FOR 03/24/2019 YECENIA REDMAN MD Ot R82.998 OTHER ABNORMAL FINDINGS IN URINE 03/24/2019 TK VALENCIA MD, Ot 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 03/24/2019 TK VALENCIA MD Ot F03.90 UNSPECIFIED DEMENTIA WITHOUT BEHAVIORAL 03/24/2019 TK VALENCIA MD, Ot L89.024 PRESSURE ULCER OF LEFT ELBOW, STAGE 4 03/24/2019 TK VALENCIA MD, Ot M05.742 RHEU ARTHRITIS W RHEU FACTOR OF LEFT [place] 03/24/2019 TK VALENCIA MD, Ot S42.402D UNSP FX LOWER END OF L HUMERUS, SUBS FOR 03/30/2019 TK VALENCIA MD, Ot 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 03/30/2019 TK VALENCIA MD, Ot F03.90 UNSPECIFIED DEMENTIA WITHOUT BEHAVIORAL 03/30/2019 TK VALENCIA MD, Ot L89.024 PRESSURE ULCER OF LEFT ELBOW, STAGE 4 03/30/2019 TK VALENCIA MD, Ot M05.742 RHEU ARTHRITIS W RHEU FACTOR OF LEFT [place] 03/30/2019 TK VALENCIA MD, Ot S42.402D UNSP FX LOWER END OF L HUMERUS, SUBS FOR 04/03/2019 TK VALENCIA MD, Ot 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 04/03/2019 TK VALENCIA MD, Ot F03.90 UNSPECIFIED DEMENTIA WITHOUT BEHAVIORAL 04/03/2019 TK VALENCIA MD, Ot L89.024 PRESSURE ULCER OF LEFT ELBOW, STAGE 4 04/03/2019 TK VALENCIA MD, Ot M05.742 RHEU ARTHRITIS W RHEU FACTOR OF LEFT [place] 04/03/2019 TK VALENCIA MD, Ot S42.402D UNSP FX LOWER END OF L HUMERUS, SUBS FOR 04/03/2019 TK VALENCIA MD, Ot 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 04/03/2019 TK VALENCIA MD, Ot F03.90 UNSPECIFIED DEMENTIA WITHOUT BEHAVIORAL 04/03/2019 TK VALENCIA MD, Ot L89.024 PRESSURE ULCER OF LEFT ELBOW, STAGE 4 04/03/2019 TK VALENCIA MD, Ot M05.742 RHEU ARTHRITIS W RHEU FACTOR OF LEFT [place] 04/03/2019 TK VALENCIA MD, Ot S42.402D UNSP FX LOWER END OF L HUMERUS, SUBS FOR 04/21/2019 TK VALENCIA MD, Ot F03.90 UNSPECIFIED DEMENTIA WITHOUT BEHAVIORAL 04/21/2019 TK VALENCIA MD, Ot L89.024 PRESSURE ULCER OF LEFT ELBOW, STAGE 4 04/21/2019 TK VALENCIA MD, Ot M05.742 RHEU ARTHRITIS W RHEU FACTOR OF LEFT [place] 04/21/2019 TK VALENCIA MD, Ot S42.402D UNSP FX LOWER END OF L HUMERUS, SUBS FOR 04/21/2019 TK VALENCIA MD, Ot X58.XXXD EXPOSURE TO OTHER SPECIFIED FACTORS, SUB 04/23/2019 TK VALENCIA MD, Ot F03.90 UNSPECIFIED DEMENTIA WITHOUT BEHAVIORAL 04/23/2019 TK VALENCIA MD, Ot L89.024 PRESSURE ULCER OF LEFT ELBOW, STAGE 4 04/23/2019 TK VALENCIA MD, Ot M05.742 RHEU ARTHRITIS W RHEU FACTOR OF LEFT [place] 04/23/2019 TK VALENCIA MD, Ot S42.402D UNSP FX LOWER END OF L HUMERUS, SUBS FOR 04/23/2019 TK VALENCIA MD, Ot X58.XXXD EXPOSURE TO OTHER SPECIFIED FACTORS, SUB 04/30/2019 TK VALENCIA MD, Ot 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 04/30/2019 TK VALENCIA MD, Ot F03.90 UNSPECIFIED DEMENTIA WITHOUT BEHAVIORAL 04/30/2019 TK VALENCIA MD, Ot L89.024 PRESSURE ULCER OF LEFT ELBOW, STAGE 4 04/30/2019 TK VALENCIA MD, Ot M05.742 RHEU ARTHRITIS W RHEU FACTOR OF LEFT [place] 04/30/2019 TK VALENCIA MD, Ot S42.402D UNSP FX LOWER END OF L HUMERUS, SUBS FOR 04/30/2019 TK VALENCIA MD, Ot X58.XXXD EXPOSURE TO OTHER SPECIFIED FACTORS, SUB 05/08/2019 TK VALENCIA MD, Ot 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 05/08/2019 TK VALENCIA MD, Ot F03.90 UNSPECIFIED DEMENTIA WITHOUT BEHAVIORAL 05/08/2019 TK VALENCIA MD, Ot L89.024 PRESSURE ULCER OF LEFT ELBOW, STAGE 4 05/08/2019 TK VALENCIA MD, Ot M05.742 RHEU ARTHRITIS W RHEU FACTOR OF LEFT [place] 05/08/2019 TK VALENCIA MD, Ot S42.402D UNSP FX LOWER END OF L HUMERUS, SUBS FOR 05/08/2019 TK VALENCIA MD, Ot X58.XXXD EXPOSURE TO OTHER SPECIFIED FACTORS, SUB 05/11/2019 TK VALENCIA MD, Ot F03.90 UNSPECIFIED DEMENTIA WITHOUT BEHAVIORAL 05/11/2019 TK VALENCIA MD, Ot L89.024 PRESSURE ULCER OF LEFT ELBOW, STAGE 4 05/11/2019 KT VALENCIA MD, Ot M05.742 RHEU ARTHRITIS W RHEU FACTOR OF LEFT [place] 05/11/2019 TK VALENCIA MD, Ot S42.402D UNSP FX LOWER END OF L HUMERUS, SUBS FOR 05/11/2019 TK VALENCIA MD, Ot X58.XXXD EXPOSURE TO OTHER SPECIFIED FACTORS, SUB 05/12/2019 TK VALENCIA MD, Ot 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 05/12/2019 TK VALENCIA MD, Ot F03.90 UNSPECIFIED DEMENTIA WITHOUT BEHAVIORAL 05/12/2019 TK VALENCIA MD, Ot L89.024 PRESSURE ULCER OF LEFT ELBOW, STAGE 4 05/12/2019 TK VALENCIA MD, Ot M05.742 RHEU ARTHRITIS W RHEU FACTOR OF LEFT [place] 05/12/2019 TK VALENCIA MD, Ot S42.402D UNSP FX LOWER END OF L HUMERUS, SUBS FOR 05/12/2019 TK VALENCIA MD, Ot X58.XXXD EXPOSURE TO OTHER SPECIFIED FACTORS, SUB Procedures Code Description Performed By Performed On 00.40 PROCEDURE ON SINGLE VESSEL 11/18/2012 00.45 INSERTION OF ONE VASCULAR STENT 11/18/2012 00.66 PERCUTANEOUS TRANSLUMINAL CORONARY ANGIO 11/18/2012 34.04 INSERT INTERCOSTAL CATH 11/18/2012 36.07 INSRT OF DRUG-ELUTING CORON ARTERY STENT 11/18/2012 37.22 LEFT HEART CARDIAC CATH 11/18/2012 38.93 VENOUS CATHETERIZATION NEC 11/18/2012 39.31 SUTURE OF ARTERY 11/18/2012 88.53 LT HEART ANGIOCARDIOGRAM 11/18/2012 88.56 CORONAR ARTERIOGR-2 CATH 11/18/2012 96.04 INSERT ENDOTRACHEAL TUBE 11/18/2012 96.71 CONTINUOUS INVASIVE MECHANICAL VENTILATI 11/18/2012 Results Test Result Range Complete blood count (CBC) with automated white blood cell (WBC) differential - 01/12/19 23:00 Blood leukocytes automated count (number/volume) 10.1 10*3/uL 4.3-11.0 Blood erythrocytes automated count (number/volume) 4.30 10*6/uL 4.35-5.85 Venous blood hemoglobin measurement (mass/volume) 13.3 g/dL 11.5-16.0 Blood hematocrit (volume fraction) 41 % 35-52 Automated erythrocyte mean corpuscular volume 95 [foz_us] 80-99 Automated erythrocyte mean corpuscular hemoglobin (mass per erythrocyte) 31 pg 25-34 Automated erythrocyte mean corpuscular hemoglobin concentration measurement (mass/volume) 32 g/dL 32-36 Automated erythrocyte distribution width ratio 16.6 % 10.0- 14.5 Automated blood platelet count (count/volume) 224 10*3/uL 130-400 Automated blood platelet mean volume measurement 11.3 [foz_us] 7.4-10.4 Automated blood neutrophils/100 leukocytes 67 % 42-75 Automated blood lymphocytes/100 leukocytes 21 % 12-44 Blood monocytes/100 leukocytes 9 % 0-12 Automated blood eosinophils/100 leukocytes 3 % 0-10 Automated blood basophils/100 leukocytes 1 % 0-10 Blood neutrophils automated count (number/volume) 6.7 10*3 1.8-7.8 Blood lymphocytes automated count (number/volume) 2.1 10*3 1.0-4.0 Blood monocytes automated count (number/volume) 0.9 10*3 0.0- 1.0 Automated eosinophil count 0.3 10*3/uL 0.0-0.3 Automated blood basophil count (count/volume) 0.1 10*3/uL 0.0-0.1 PT panel in platelet poor plasma by coagulation assay - 01/12/19 23:00 Prothrombin time (PT) in platelet poor plasma by coagulation assay 12.5 s 12.2-14.7 INR in platelet poor plasma or blood by coagulation assay 0.9 0.8-1.4 Activated partial thromboplastin time (aPTT) in platelet poor plasma bycoagulation assay - 01/12/19 23:00 Activated partial thromboplastin time (aPTT) in platelet poor plasma bycoagulation assay 27 s 24-35 Comprehensive metabolic panel - 01/12/19 23:00 Serum or plasma sodium measurement (moles/volume) 140 mmol/L 135-145 Serum or plasma potassium measurement (moles/volume) 4.1 mmol/L 3.6-5.0 Serum or plasma chloride measurement (moles/volume) 103 mmol/L 98-107 Carbon dioxide 25 mmol/L 21-32 Serum or plasma anion gap determination (moles/volume) 12 mmol/L 5-14 Serum or plasma urea nitrogen measurement (mass/volume) 14 mg/dL 7-18 Serum or plasma creatinine measurement (mass/volume) 1.34 mg/dL 0.60-1.30 Serum or plasma urea nitrogen/creatinine mass ratio 10 NRG Serum or plasma creatinine measurement with calculation of estimated glomerular filtration rate 38 NRG Serum or plasma glucose measurement (mass/volume) 99 mg/dL 70-105 Serum or plasma calcium measurement (mass/volume) 10.4 mg/dL 8.5-10.1 Serum or plasma total bilirubin measurement (mass/volume) 0.4 mg/dL 0.1-1.0 Serum or plasma alkaline phosphatase measurement (enzymatic activity/volume) 123 U/L 40-136 Serum or plasma aspartate aminotransferase measurement (enzymatic activity/volume) 30 U/L 5-34 Serum or plasma alanine aminotransferase measurement (enzymatic activity/volume) 18 U/L 0-55 Serum or plasma protein measurement (mass/volume) 7.0 g/dL 6.4-8.2 Serum or plasma albumin measurement (mass/volume) 3.9 g/dL 3.2-4.5 CALCIUM CORRECTED 10.5 mg/dL 8.5-10.1 Magnesium - 01/12/19 23:00 Magnesium 2.1 mg/dL 1.8-2.4 Serum or plasma troponin i.cardiac measurement (mass/volume) - 01/12/19 23:00 Serum or plasma troponin i.cardiac measurement (mass/volume) < ng/mL <0.028 Complete urinalysis with reflex to culture - 01/13/19 00:35 Urine color determination YELLOW NRG Urine clarity determination SLIGHTLY CLOUDY NRG Urine pH measurement by test strip 6 5-9 Specific gravity of urine by test strip 1.015 1.016-1.022 Urine protein assay by test strip, semi-quantitative NEGATIVE NEGATIVE Urine glucose detection by automated test strip NEGATIVE NEGATIVE Erythrocytes detection in urine sediment by light microscopy 1+ NEGATIVE Urine ketones detection by automated test strip NEGATIVE NEGATIVE Urine nitrite detection by test strip POSITIVE NEGATIVE Urine total bilirubin detection by test strip NEGATIVE NEGATIVE Urine urobilinogen measurement by automated test strip (mass/volume) NORMAL NORMAL Urine leukocyte esterase detection by dipstick 3+ NEGATIVE Automated urine sediment erythrocyte count by microscopy (number/high power field) NONE NRG Automated urine sediment leukocyte count by microscopy (number/high power field) [HPF] NRG Bacteria detection in urine sediment by light microscopy LARGE NRG Squamous epithelial cells detection in urine sediment by light microscopy 0-2 NRG Crystals detection in urine sediment by light microscopy NONE NRG Casts detection in urine sediment by light microscopy NONE NRG Mucus detection in urine sediment by light microscopy NEGATIVE NRG Complete urinalysis with reflex to culture YES NRG Bacterial urine culture - 01/13/19 00:35 Bacterial urine culture [id number] NRG COLONY COUNT >100,000/ML NRG FTX;REPORTABLE SUSCEPTIBILITY REPORTED 01-16-2019,1405 NRG FREE TEXT ENTRY 2 ID REPORTED 01/14/19 17:05 NRG RML Sensitivity Panel - 01/13/19 00:35 Gentamicin susceptibility test by minimum inhibitory concentration <= NRG Trimethoprim/sulfamethoxazole susceptibility test by minimum inhibitoryconcentration > NRG Levofloxacin susceptibility test by minimum inhibitory concentration <= NRG Ampicillin susceptibility test by minimum inhibitory concentration > NRG Cefazolin susceptibility test by minimum inhibitory concentration 2 NRG Ceftriaxone susceptibility test by minimum inhibitory concentration <= NRG Ciprofloxacin susceptibility test by minimum inhibitory concentration <= NRG Meropenem susceptibility test by minimum inhibitory concentration <= NRG Nitrofurantoin susceptibility test by minimum inhibitory concentration <= NRG Amoxicillin and clavulanate potassium susc GRETCHEN = NRG Bacterial urine culture - 03/13/19 17:00 Bacterial urine culture 3 OR MORE NRG COLONY COUNT >100,000/ML NRG FTX;REPORTABLE SUGGESTING PROBABLE COLLECTION NRG FREE TEXT ENTRY 2 CONTAMINATION WITH SKIN DILIP NRG FREE TEXT ENTRY 3 NO SUSCEPTIIBLITY PERFORMED NRG Encounters ACCT No. Visit Date/Time Discharge Status Pt. Type Provider Facility Loc./Unit Complaint [id number] 05/04/2019 15:00:00 05/04/2019 23:59:59 CLS Outpatient TK VALENCIA MD [facility] [id number] 04/28/2019 13:55:00 04/28/2019 23:59:59 CLS Outpatient TK VALENCIA MD [facility] [id number] 04/20/2019 14:58:00 04/20/2019 23:59:59 CLS Outpatient TK VALENCIA MD [facility] [id number] 04/14/2019 14:23:00 04/14/2019 23:59:59 CLS Outpatient TK VALENCIA MD [facility] [id number] 04/01/2019 14:55:00 04/01/2019 23:59:59 CLS Outpatient TK VALENCIA MD [facility] [id number] 03/23/2019 14:56:00 03/23/2019 23:59:59 CLS Outpatient TK VALENCIA MD [facility] [id number] 03/17/2019 13:01:00 03/17/2019 23:59:59 CLS Outpatient TK VALENCIA MD [facility] [id number] 03/13/2019 19:37:00 03/13/2019 23:59:59 CLS Outpatient YECENIA REDMAN MD [facility] C URINE [id number] 03/11/2019 14:46:00 03/11/2019 23:59:59 CLS Outpatient TK VALENCIA MD [facility] RAD [id number] 03/11/2019 13:24:00 03/11/2019 23:59:59 CLS Outpatient TK VALENCIA MD [facility] [id number] 01/12/2019 22:51:00 01/13/2019 01:33:00 DIS Emergency MONA DOSOL [facility] ER FALL [id number] 11/10/2015 13:01:00 11/10/2015 23:59:59 CLS Outpatient HASEEB ROBERTS APRN [facility] RAD LT HIP PAIN FROM FALL [id number] 07/05/2014 08:56:00 07/05/2014 23:59:59 CLS Outpatient ROSITA PENG [facility] RAD COUGH,COPD [id number] 06/15/2013 09:30:00 08/19/2013 00:01:00 DIS Outpatient KEVIN MASSEY MD [facility] CARD PALPITATIONS [id number] 05/12/2019 15:35:00 ACT Outpatient TK [facility]ENC[id number] 11/10/2015 12:56:00 Document Registration [id number] 08/20/2013 09:00:00 Document Registration [id number] 12/05/2012 11:00:00 Document Registration [id number] 11/26/2012 11:10:00 Document Registration [id number] 11/18/2012 16:06:00 Document Registration [id number] 11/14/2012 07:58:00 Document Registration [id number] 11/04/2012 12:42:00 Document Registration [id number] 04/05/2012 09:00:00 Document Registration [id number] 04/01/2012 09:00:00 Document Registration [id number] 03/30/2012 08:40:00 Document Registration [id number] 03/19/2012 08:15:00 Document Registration [id number] 03/18/2012 11:57:00 Document Registration [id number] 02/11/2012 10:52:00 Document Registration [id number] 01/19/2011 13:32:00 Document Registration
--- NOTE | 2019-05-15 14:20 | ED General ---
General Chief Complaint: General Problems/Pain Stated Complaint: KNOT ON BREAST Source of Information: Patient Exam Limitations: No Limitations History of Present Illness Date Seen by Provider: May 15, 2019 Time Seen by Provider: 14:17 Initial Comments 89-year-old demented female Brought to ER by her son from the custodial with reports of left breast nodule first noticed by staff at the custodial yesterday. He states that they told him they would get stuff going on this but nothing has been done in almost 24 hours so he decided to bring her to the emergency room himself. Severity: Moderate Allergies and Home Medications Allergies Coded Allergies: No Known Drug Allergies (Unverified , 11/26/12) Home Medications Aspirin 81 Mg Chew, 81 MG PO DAILY, (Reported) Cholecalciferol (Vitamin D3) 50,000 Unit Capsule, 50,000 UNIT PO DAILY, (Reported) Lisinopril 5 Mg Tablet, 5 MG PO DAILY, (Reported) Methotrexate 2.5 Mg Tab, 4 EACH PO WEEKLY, (Reported) Metoprolol Succinate 25 Mg Tab, 25 MG PO DAILY, (Reported) Multivitamins 1 Each Capsule, 1 EACH PO DAILY, (Reported) [place]-3/Dha/Epa/Fish Oil 1 Each Capsule.dr, 1 EACH PO BID, (Reported) Pantoprazole Sodium 40 Mg Tablet.dr, 1 TAB PO DAILY, (Reported) Prednisone 2.5 Mg Tablet, 3 TAB PO DAILY, (Reported) Sulfamethoxazole/Trimethoprim 1 Each Tablet, 1 EACH PO BID Prescribed by: SOL DUNN on 01/13/19 0112 Ticagrelor 90 Mg Tablet, 90 MG PO BID, (Reported) Tiotropium [place] 1 Inh Aerp, 0 IH DAILY, (Reported) 1 INHALATION Patient Home Medication List Home Medication List Reviewed: Yes Review of Systems Review of Systems Constitutional: see HPI EENTM: see HPI Respiratory: no symptoms reported Cardiovascular: no symptoms reported Genitourinary: no symptoms reported Musculoskeletal: no symptoms reported Skin: see HPI Psychiatric/Neurological: No Symptoms Reported Hematologic/Lymphatic: No Symptoms Reported Immunological/Allergic: no symptoms reported Past Cdhvnqc-Bhtnvt-Vfvyqt Hx Patient Social History Alcohol Use: Denies Use Recreational Drug Use: No Smoking Status: Never a Smoker 2nd Hand Smoke Exposure: No Recent Foreign Travel: No Contact w/Someone Who Travel: No Recent Hopitalizations: No Physical Abuse: No Sexual Abuse: No Mistreated: No Fear: No Immunizations Up To Date Date of Pneumonia Vaccine: Nov 18, 2009 Seasonal Allergies Seasonal Allergies: No Past Medical History Surgeries: Yes Amputation, Angioplasty, Appendectomy, Cardiac, Coronary Stent, Hysterectomy, Orthopedic, Vascular Surgery Respiratory: Yes Asthma, COPD Cardiac: Yes Coronary Artery Disease, High Cholesterol, Hypertension, Peripheral Vascular Neurological: Yes Dementia 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 8.0oz. [id number]; 21.58 BMI Method:Estimated General Appearance: No Apparent Distress, WD/WN, Other (alert pleasant) Eyes: Bilateral Eye Normal Inspection, Bilateral Eye PERRL Neck: Full Range of Motion, Normal Inspection Respiratory: Normal Breath Sounds, No Accessory Muscle Use, No Respiratory Distress Cardiovascular: Regular Rate, Rhythm, Normal Peripheral Pulses Gastrointestinal: Normal Bowel Sounds, Non Tender, Soft Extremity: Normal Capillary Refill, Normal Inspection Neurologic/Psychiatric: Alert, Oriented x3 Skin: Normal Color, Warm/Dry, Other (the left breast has a firm ping-pong ball sized irregularly shaped mass, there is dimpling of the breast tissue and retraction/inversion of the areola. There is no erythema of the overlying skin.) Progress/Results/Core Measures Suspected Sepsis SIRS Temperature: Pulse: Respiratory Rate: Blood Pressure / Mean: Results/Orders My Orders Orders - KANDICE PALACIOS APRN Breast Complete Left (05/15/19 14:16) Vital Signs/I&O 05/15/19 13:58 Temp 97.6 Pulse 77 Resp 18 B/P (MAP) 144/68 (93) Pulse Ox 98 O2 Delivery Room Air Capillary Refill : Departure Communication (Admissions) He does have a outpatient order from Dr. Dumont for diagnostic mammography at [facility] Impression Primary Impression: Left breast mass Disposition: 01 HOME, SELF-CARE Condition: Stable Departure-Patient Inst. Decision time for Depature: 14:25 Referrals: KEVIN MASSEY MD (PCP/Family) Primary Care Physician Patient Instructions: Breast Biopsy Add. Discharge Instructions: 1. if you wish to pursue treatment of this. If you do not wish to pursue treatment of this considering the major surgery that would likely be required in addition to the Harsh chemotherapy when considering her advanced age and dementia, then no biopsy as needed. Call [facility] at [phone] and ask for the radiology department to schedule a time for the diagnostic mammogram which is the next imaging study. All discharge instructions reviewed with patient and/or family. Voiced understanding. Copy Copies To 1: KEVIN MASSEY MD, PETER J SCREEN REPAIRER CRUSHER May 15, 2019 14:20
[2019-05-15 15:59] VITALS: BP 144/68
--- NOTE | 2019-05-15 15:59 | Diagnostic Imaging Report ---
Indication: Palpable abnormality, left breast. There is no evidence for a fluid collection. No findings to suggest abscess or hematoma. Interpretation of breast ultrasound is challenged by the fact that I was unable to participate in the real-time scanning. Corresponding to the region of reported palpable fullness was a spiculated irregular heterogeneous vascularized shadowing hypoechoic breast mass, measures at least 4 cm and its sonographic appearance is very suspicious for carcinoma. This needs formal diagnostic mammography workup bilaterally and pending the results of that exam, a repeat of the ultrasound may be needed with the radiologist in house for its participation. There were at least 2 lymph nodes of predominantly fatty in the left axilla which did not appear morphologically distorted or grossly pathologic. Impression: Large heterogeneous hypoechoic spiculated ill-defined vascularized shadowing left breast mass sonographically very suggestive of breast carcinoma but this requires bilateral diagnostic mammography for further workup. BI-RADS category 0. Bilateral diagnostic mammography recommended when available. Suspicion for malignancy was discussed by phone with the ER physician. ACR BI-RADS Category 0: Incomplete. (Needs additional imaging evaluation). Result letter will be mailed to the patient. Note: At least 10% of breast cancer is not imaged by mammography. Dictated by: Dictated on workstation # [id number]
== END 2019-05-15 15:59 | disposition home or self-care (01) ==
LOC: EDUNIT# 13:42 → ER 13:43
DX: N63.20 Unspecified lump in the left breast, unspecified quadrant (principal); J44.9 Chronic obstructive pulmonary disease, unspecified; I25.10 Atherosclerotic heart disease of native coronary artery without angina pectoris; E78.00 Pure hypercholesterolemia, unspecified; I10 Essential (primary) hypertension; I73.9 Peripheral vascular disease, unspecified; F03.90 Unspecified dementia, unspecified severity, without behavioral disturbance, psychotic disturbance, mood disturbance, and anxiety; M06.9 Rheumatoid arthritis, unspecified; E03.9 Hypothyroidism, unspecified; Z86.14 Personal history of Methicillin resistant Staphylococcus aureus infection; Z89.422 Acquired absence of other left toe(s); Z87.440 Personal history of urinary (tract) infections; Z79.82 Long term (current) use of aspirin; Z79.52 Long term (current) use of systemic steroids; Z90.49 Acquired absence of other specified parts of digestive tract; Z95.5 Presence of coronary angioplasty implant and graft; Z90.710 Acquired absence of both cervix and uterus; Z98.890 Other specified postprocedural states
CPT/HCPCS: 76641

== ENCOUNTER → 2019-05-26 | Outpatient (CLI) | payer OTHER | LOC: WOUNDCARE 15:36 | PROVIDERS: ATTEND Surgery | DX: L89.024 Pressure ulcer of left elbow, stage 4 (principal); M05.742 Rheumatoid arthritis with rheumatoid factor of left hand without organ or systems involvement; F03.90 Unspecified dementia, unspecified severity, without behavioral disturbance, psychotic disturbance, mood disturbance, and anxiety; E44.0 Moderate protein-calorie malnutrition | CPT/HCPCS: 99212 ==

== ENCOUNTER → 2019-06-12 | Outpatient (CLI) | payer MEDICARE, OTHER ==
[~2019-06-12] MED LIST changes: +LIDOCAINE 1% INJ 20 ML 20 ML VIAL INJ ONE
--- NOTE | 2019-06-12 21:24 | Diagnostic Imaging Report ---
INDICATION: Left breast mass. Patient is status post ultrasound-guided biopsy. EXAMINATION: 2D CC and ML mammography of the left breast was performed. FINDINGS: Spiculated mass in the inner left breast is noted. There is a marker clip along the margin of the mass. IMPRESSION: Marker clip is located within the spiculated mass. Dictated by: Dictated on workstation # [id number]
--- NOTE | 2019-06-15 08:08 | Diagnostic Imaging Report ---
INDICATION: Left breast mass. Patient presents for biopsy. DETAILS OF PROCEDURE: Patient was brought to the procedure room and placed on bed in the supine position. Ultrasound imaging of left breast was performed to evaluate appropriate entry site. Left breast was then prepped and draped in usual sterile fashion. Small amount of 1% lidocaine was utilized for local anesthesia. A total of two core biopsies were obtained of the large lobulated mass at the 9 o'clock location of the left breast utilizing a 14-gauge Achieve needle. A marker clip was then deployed. Hemostasis was obtained using manual compression. Patient tolerated the procedure well and left the department in stable condition. IMPRESSION: Successful ultrasound-guided core biopsy of the mass at 9 o'clock location of the left breast. Pathology results are currently pending. Dictated by: Dictated on workstation # [id number]
== END ==
LOC: RAD 12:14
PROVIDERS: ATTEND Internal Medicine Hematology & Oncology
DX: C50.912 Malignant neoplasm of unspecified site of left female breast (principal); Z98.890 Other specified postprocedural states
CPT/HCPCS: 19083

== ENCOUNTER 2019-07-31 07:46 | Outpatient (RCR) | payer OTHER ==
[2019-07-02 10:59] LABS: BASOPHILS % (AUTO) 0 % (0-10); EOSINOPHILS # (AUTO) 0.1 10^3/uL (0.0-0.3); EOSINOPHILS % (AUTO) 2 % (0-10); HEMATOCRIT 43 % (35-52); HEMOGLOBIN 13.8 G/DL (11.5-16.0); LYMPHOCYTES # (AUTO) 1.3 X 10^3 (1.0-4.0); LYMPHOCYTES % (AUTO) 16 % (12-44); MEAN CORPUSCULAR HEMOGLOBIN 31 PG (25-34); MEAN CORPUSCULAR HGB CONC 32 G/DL (32-36); MEAN CORPUSCULAR VOLUME 96 FL (80-99); MEAN PLATELET VOLUME 11.2 FL (7.4-10.4); MONOCYTES # (AUTO) 0.6 X 10^3 (0.0-1.0); MONOCYTES % (AUTO) 7 % (0-12); NEUTROPHILS % (AUTO) 74 % (42-75); PLATELET COUNT 244 10^3/uL (130-400); WHITE BLOOD COUNT 8.1 10^3/uL (4.3-11.0)
[2019-07-02 11:29] LABS: ALBUMIN 3.7 GM/DL (3.2-4.5); BILIRUBIN,TOTAL 0.3 MG/DL (0.1-1.0); CALCIUM 10.6 MG/DL (8.5-10.1); CREATININE SERUM 1.06 MG/DL (0.60-1.30); TOTAL PROTEIN 6.7 GM/DL (6.4-8.2)
[~2019-07-31 07:46] MED LIST changes: -LIDOCAINE 1% INJ 20 ML 20 ML VIAL INJ ONE
[2019-07-31 09:49] LABS: BASOPHILS % (AUTO) 1 % (0-10); EOSINOPHILS # (AUTO) 0.1 10^3/uL (0.0-0.3); EOSINOPHILS % (AUTO) 2 % (0-10); HEMATOCRIT 44 % (35-52); HEMOGLOBIN 14.1 G/DL (11.5-16.0); LYMPHOCYTES % (AUTO) 15 % (12-44); MEAN CORPUSCULAR HEMOGLOBIN 31 PG (25-34); MEAN CORPUSCULAR HGB CONC 32 G/DL (32-36); MEAN CORPUSCULAR VOLUME 96 FL (80-99); MEAN PLATELET VOLUME 11.4 FL (7.4-10.4); MONOCYTES # (AUTO) 0.4 X 10^3 (0.0-1.0); MONOCYTES % (AUTO) 6 % (0-12); NEUTROPHILS # (AUTO) 5.1 X 10^3 (1.8-7.8); NEUTROPHILS % (AUTO) 77 % (42-75); PLATELET COUNT 214 10^3/uL (130-400); RED CELL DISTRIBUTION WIDTH 15.7 % (10.0-14.5); WHITE BLOOD COUNT 6.6 10^3/uL (4.3-11.0)
[2019-07-31 10:14] LABS: BILIRUBIN,TOTAL 0.4 MG/DL (0.1-1.0); CREATININE SERUM 1.27 MG/DL (0.60-1.30); TOTAL PROTEIN 7.2 GM/DL (6.4-8.2)
== END 2019-09-06 | disposition home or self-care (01) ==
LOC: ONC 07:46
PROVIDERS: ATTEND Internal Medicine Hematology & Oncology
DX: C50.912 Malignant neoplasm of unspecified site of left female breast (principal); F03.90 Unspecified dementia, unspecified severity, without behavioral disturbance, psychotic disturbance, mood disturbance, and anxiety; M06.9 Rheumatoid arthritis, unspecified; Z79.899 Other long term (current) drug therapy
CPT/HCPCS: 36415; 80053; 85025; 99213; 99214

== ENCOUNTER 2019-09-24 10:30 | Outpatient (RCR) | payer OTHER ==
[2019-09-24 10:51] LABS: BASOPHILS % (AUTO) 0 % (0-10); EOSINOPHILS # (AUTO) 0.3 10^3/uL (0.0-0.3); EOSINOPHILS % (AUTO) 3 % (0-10); HEMATOCRIT 40 % (35-52); HEMOGLOBIN 12.7 G/DL (11.5-16.0); LYMPHOCYTES # (AUTO) 1.1 X 10^3 (1.0-4.0); LYMPHOCYTES % (AUTO) 9 % (12-44); MEAN CORPUSCULAR HGB CONC 31 G/DL (32-36); MEAN CORPUSCULAR VOLUME 94 FL (80-99); MEAN PLATELET VOLUME 10.9 FL (7.4-10.4); MONOCYTES # (AUTO) 0.7 X 10^3 (0.0-1.0); MONOCYTES % (AUTO) 6 % (0-12); NEUTROPHILS # (AUTO) 10.2 X 10^3 (1.8-7.8); NEUTROPHILS % (AUTO) 82 % (42-75); PLATELET COUNT 246 10^3/uL (130-400); RED CELL DISTRIBUTION WIDTH 16.4 % (10.0-14.5); WHITE BLOOD COUNT 12.4 10^3/uL (4.3-11.0)
[2019-09-24 10:52] LABS: MEAN CORPUSCULAR HEMOGLOBIN 29 PG (25-34)
[2019-09-24 11:15] LABS: ALBUMIN 3.5 GM/DL (3.2-4.5); BILIRUBIN,TOTAL 0.7 MG/DL (0.1-1.0); CALCIUM 10.4 MG/DL (8.5-10.1); CREATININE SERUM 1.14 MG/DL (0.60-1.30); TOTAL PROTEIN 6.8 GM/DL (6.4-8.2)
== END 2019-12-23 | disposition home or self-care (01) ==
LOC: ONC 10:30
PROVIDERS: ATTEND Internal Medicine Hematology & Oncology
DX: C50.912 Malignant neoplasm of unspecified site of left female breast (principal); F03.90 Unspecified dementia, unspecified severity, without behavioral disturbance, psychotic disturbance, mood disturbance, and anxiety; M06.9 Rheumatoid arthritis, unspecified; Z79.899 Other long term (current) drug therapy; Z79.811 Long term (current) use of aromatase inhibitors
CPT/HCPCS: 36415; 80053; 85025; 99213

== ENCOUNTER → 2019-12-22 | Outpatient (CLI) | payer MEDICARE, OTHER ==
--- NOTE | 2019-12-22 14:36 | Diagnostic Imaging Report ---
INDICATION: Left breast carcinoma. This study is performed for followup. COMPARISON: Correlation is made with the prior left breast ultrasound from 05/15/2019. FINDINGS: The irregular, solid hypoechoic mass at the 9 o'clock location of the left breast 2 cm from the nipple is again noted. This is similar in size to the prior exam currently measuring approximately 3.6 x 2.6 x 3.2 cm compared with 3.6 x 3.3 x 3.1 cm on the prior exam. The slight differences may be owing to slight differences in measurement technique. There is internal vascularity present. IMPRESSION: The known left breast malignancy at the 9 o'clock location 2 cm from the nipple appears to be unchanged when compared with the examination from 05/15/2019. Dictated by: Dictated on workstation # [id number]
--- NOTE | 2019-12-22 15:54 | Diagnostic Imaging Report ---
INDICATION: Postmenopausal state. COMPARISON: January 24, 2010. FINDINGS: AP Spine L1-L4: [BMD (g/cm2): 1.037] [T-Score: -1.4] [Z-Score: 1.3] [BMD Previous: 1.067] [BMD % Change: -2.8] LT Hip Neck: [BMD (g/cm2): .668] [T-Score: -2.7] [Z-Score: 0.3] LT Hip Total: [BMD (g/cm2):0.641] [T-Score:-2.9] [Z-Score: 0.0] [BMD Previous: 0.883] [BMD % Change: -27.4] RT Hip Neck: [BMD (g/cm2):0.692] [T-Score:-2.5] [Z-Score:0.4] RT Hip Total: [BMD (g/cm2):0.655] [T-score:-2.8] [Z-Score:0.1] [BMD Previous:0.876] [BMD % Change:-25.2] *Indicates significant change from prior examination based on 95% confidence level. World Health Organization criteria for BMD interpretation classify patients as Normal (T-score at or above -1.0), Osteopenic (T-score between -1.0 and -2.5) or Osteoporotic (T-score at or below -2.5). LIMITATIONS AND MODIFICATION: None. FRACTURE RISK (FRAX SCORE): The ten year probability of (%): Major Osteoporotic Fracture: [20.2] Hip Fracture: [7.3] IMPRESSION: 1. Osteoporosis. 2. Bone mineral density has decreased since the prior imaging from 2009, though not statistically significant. 3. See below National Osteoporosis Foundation guidelines on when to potentially initiate pharmacologic therapy. Based on the National Osteoporosis Foundation Guidelines, pharmacologic treatment should be initiated in any of the following, unless clinical conditions suggest otherwise: * Any patient with prior fragility fracture of the hip or vertebrae. A spine fracture indicates 5X risk for subsequent spine fracture and 2X risk for subsequent hip fracture. * Osteoporosis (T-score <-2.5). * Postmenopausal women and men age 50 and older with low bone mass/osteopenia (T-score between -1.0 and -2.5) by DXA and 10-year major osteoporotic fracture greater than 20% or a 10-year probability of hip fracture greater than 3%. These fracture risks are supplied above in the FRAX score, if applicable. * Clinician judgement and/or patient preferences may indicate treatment for people with 10-year fracture probabilities above or below these levels. Dictated by: Dictated on workstation # [id number]
== END ==
LOC: RAD 13:13
PROVIDERS: ATTEND Nurse Practitioner Adult Health
DX: Z01.89 Encounter for other specified special examinations (principal); Z13.820 Encounter for screening for osteoporosis; M81.0 Age-related osteoporosis without current pathological fracture; C50.112 Malignant neoplasm of central portion of left female breast; N18.3 Chronic kidney disease, stage 3 (moderate); Z78.0 Asymptomatic menopausal state; Z79.811 Long term (current) use of aromatase inhibitors
CPT/HCPCS: 76642; 77080

== ENCOUNTER 2019-12-29 10:45 | Outpatient (RCR) | payer MEDICARE ==
[2019-12-29 10:35] LABS: BASOPHILS % (AUTO) 0 % (0-10); EOSINOPHILS # (AUTO) 0.2 10^3/uL (0.0-0.3); EOSINOPHILS % (AUTO) 2 % (0-10); HEMATOCRIT 40 % (35-52); HEMOGLOBIN 12.8 G/DL (11.5-16.0); LYMPHOCYTES # (AUTO) 1.4 X 10^3 (1.0-4.0); LYMPHOCYTES % (AUTO) 15 % (12-44); MEAN CORPUSCULAR HEMOGLOBIN 29 PG (25-34); MEAN CORPUSCULAR HGB CONC 32 G/DL (32-36); MEAN CORPUSCULAR VOLUME 92 FL (80-99); MEAN PLATELET VOLUME 11.2 FL (7.4-10.4); MONOCYTES # (AUTO) 0.7 X 10^3 (0.0-1.0); MONOCYTES % (AUTO) 8 % (0-12); NEUTROPHILS # (AUTO) 6.8 X 10^3 (1.8-7.8); NEUTROPHILS % (AUTO) 74 % (42-75); PLATELET COUNT 276 10^3/uL (130-400); RED CELL DISTRIBUTION WIDTH 16.7 % (10.0-14.5); WHITE BLOOD COUNT 9.1 10^3/uL (4.3-11.0)
[2019-12-29 10:56] LABS: ALBUMIN 3.7 GM/DL (3.2-4.5); BILIRUBIN,TOTAL 0.6 MG/DL (0.1-1.0); CREATININE SERUM 1.13 MG/DL (0.60-1.30); POTASSIUM 4.1 MMOL/L (3.6-5.0); TOTAL PROTEIN 7.3 GM/DL (6.4-8.2)
== END 2020-03-28 | disposition home or self-care (01) ==
LOC: ONC 10:45
PROVIDERS: ATTEND Internal Medicine Hematology & Oncology
DX: C50.912 Malignant neoplasm of unspecified site of left female breast (principal); F03.90 Unspecified dementia, unspecified severity, without behavioral disturbance, psychotic disturbance, mood disturbance, and anxiety; M06.9 Rheumatoid arthritis, unspecified; Z79.899 Other long term (current) drug therapy; Z79.811 Long term (current) use of aromatase inhibitors
CPT/HCPCS: 80053; 82306; 85025; 86300; 99213

== ENCOUNTER 2020-08-08 04:00 | Emergency (ER) | payer MEDICARE ==
[~2020-08-08 04:00] MED LIST changes: -AZIT500T PO; -CEFD300C3 PO
[2020-08-08] MEDS ORDERED: cefTRIAXone FOR IV USE 1,000 MG in WATER (STERILE) FOR INJECTION 10 ML IV ONE (05:00)
[2020-08-08] MEDS ORDERED: AZITHROMYCIN INJECTION 500 MG in NS (IVPB) 250 ML IV ONE (05:00)
[2020-08-08] MEDS ORDERED: cefTRIAXone 1,000 MG/2.86 ml vial (IM ONLY) IM SCH (05:15)
[2020-08-08] MEDS ORDERED: LIDOCAINE 1% INJ 20 ML 20 ML VIAL INJ ONE (05:15)
[2020-08-08] MEDS ORDERED: AZITHROMYCIN 250 MG TAB (ZITHROMAX) PO ONE (05:15)
--- NOTE | 2020-08-08 05:45 | NUR ---
ADRIAN, NURSE FROM [facility] UPDATED ON PT STATUS AND PENDING DC BACK TO FACILITY. ADRIAN WILL ARRANGE FOR TRANSPORT OF PT BACK TO [facility].
[2020-08-08] MEDS ORDERED: CEFD300C3 PO (06:10)
[2020-08-08] MEDS ORDERED: AZIT500T PO (06:10)
--- NOTE | 2020-08-08 06:10 | ED General ---
General Chief Complaint: General Problems/Pain Stated Complaint: BLOOD PRESSURE Allergies and Home Medications Allergies Coded Allergies: No Known Drug Allergies (Unverified , 11/26/12) Home Medications Aspirin 81 Mg Chew, 81 MG PO DAILY, (Reported) Cholecalciferol (Vitamin D3) 50,000 Unit Capsule, 50,000 UNIT PO DAILY, (Report ed) Lisinopril 5 Mg Tablet, 5 MG PO DAILY, (Reported) Methotrexate 2.5 Mg Tab, 4 EACH PO WEEKLY, (Reported) Metoprolol Succinate 25 Mg Tab, 25 MG PO DAILY, (Reported) Multivitamins 1 Each Capsule, 1 EACH PO DAILY, (Reported) [place]-3/Dha/Epa/Fish Oil 1 Each Capsule.dr, 1 EACH PO BID, (Reported) Pantoprazole Sodium 40 Mg Tablet.dr, 1 TAB PO DAILY, (Reported) Prednisone 2.5 Mg Tablet, 3 TAB PO DAILY, (Reported) Sulfamethoxazole/Trimethoprim 1 Each Tablet, 1 EACH PO BID Prescribed by: SOL DUNN on 01/13/19 0112 Ticagrelor 90 Mg Tablet, 90 MG PO BID, (Reported) Tiotropium [place] 1 Inh Aerp, 0 IH DAILY, (Reported) 1 INHALATION Past Eqeguff-Hgkejr-Fzwbsp Hx Patient Social History 2nd Hand Smoke Exposure: No Recent Foreign Travel: No Contact w/Someone Who Travel: No Recent Hopitalizations: No Immunizations Up To Date Date of Pneumonia Vaccine: Nov 18, 2009 Seasonal Allergies Seasonal Allergies: No Past Medical History Surgeries: Yes Amputation, Angioplasty, Appendectomy, Cardiac, Coronary Stent, Hysterectomy, Orthopedic, Vascular Surgery Respiratory: Yes Asthma, COPD Cardiac: Yes Coronary Artery Disease, High Cholesterol, Hypertension, Peripheral Vascular Neurological: Yes Dementia 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 8.0oz. 40.414425fq; 21.58 BMI Method:Stated Progress/Results/Core Measures Suspected Sepsis SIRS Temperature: Pulse: Respiratory Rate: Blood Pressure / Mean: Results/Orders Lab Results Laboratory Tests Test 08/08/20 05:05 Range/Units Coronavirus 2019 (ANGIE) Negative Negative My Orders Orders - SOL DUNN DO Ed Iv/Invasive Line Start (08/08/20 04:03) Ekg Tracing (08/08/20 04:03) Monitor-Rhythm Ecg Trace Only (08/08/20 04:03) Chest 1 View, Ap/Pa Only (08/08/20 04:03) Ceftriaxone For Iv Use (Rocephin For I (08/08/20 05:00) Azithromycin Injection (Zithromax Inject (08/08/20 05:00) Ceftriaxone For Im Use (Rocephin For Im (08/08/20 05:15) Lidocaine 1% Inj 20 Ml (Xylocaine 1% Inj (08/08/20 05:15) Azithromycin Tablet (Zithromax Tablet) (08/08/20 05:15) Covid 19 Inhouse Test (08/08/20 05:01) Coronavirus Sars-Cov-2 So 2018 (08/08/20 05:43) Medications Given in ED Current Medications Medications Dose Ordered Sig/Pat Route Start Time Stop Time Status Last Admin Dose Admin Azithromycin 500 mg ONCE ONCE PO 08/08/20 05:15 08/08/20 05:16 DC 08/08/20 05:14 500 MG Lidocaine HCl 2.1 ml ONCE ONCE INJ 08/08/20 05:15 08/08/20 05:16 DC 08/08/20 05:14 2.1 ML Vital Signs/I&O Capillary Refill : Departure Impression Primary Impression: RLL pneumonia Disposition: 03 XFER SNF Condition: Stable Departure-Patient Inst. Referrals: KEVIN MASSEY MD (PCP/Family) Primary Care Physician Patient Instructions: Pneumonia, Adult (DC) Add. Discharge Instructions: CONTINUE ALL REGULAR MEDICATIONS USUAL PT'S REGULAR PHYSICIAN FOR FURTHER ORDERS All discharge instructions reviewed with patient and/or family. Voiced understanding. Scripts Azithromycin (Zithromax) 500 Mg Tablet 500 MG PO DAILY for 5 Days, #5 TAB Prov: SOL DUNN DO 08/08/20 Cefdinir (Cefdinir) 300 Mg Capsule 300 MG PO BID, #20 CAP Prov: SOL DUNN K DO 08/08/20 SOL DUNN DO Aug 08, 2020 06:10
--- NOTE | 2020-08-08 06:27 | Diagnostic Imaging Report ---
INDICATION: Shortness of breath and fever. FINDINGS: Lung volumes are diminished. There is abnormal interstitial and alveolar opacification present at the right lung base most likely reflective of pneumonia in this clinical setting. Right effusion cannot be excluded. There is no significant pleural fluid evident on the left. There are no findings of pneumothorax. Central pulmonary vascularity appears appropriate without evidence of current failure. IMPRESSION: Low lung volumes with right basilar opacities and probable small right effusion. In this clinical setting and given asymmetry, a right basilar pneumonia is the primary consideration. Dictated by: Dictated on workstation # [id number]
[2020-08-08 06:43] VITALS: BP 124/56
== END 2020-08-08 06:43 ==
LOC: ER 04:00
DX: J18.1 Lobar pneumonia, unspecified organism (principal); J44.9 Chronic obstructive pulmonary disease, unspecified; I10 Essential (primary) hypertension; I25.10 Atherosclerotic heart disease of native coronary artery without angina pectoris; Z95.5 Presence of coronary angioplasty implant and graft; Z79.82 Long term (current) use of aspirin; Z79.52 Long term (current) use of systemic steroids; Z20.828 Contact with and (suspected) exposure to other viral communicable diseases
CPT/HCPCS: 71045; 93041; 99283; U0002; 87635

== ENCOUNTER → 2020-08-08 | Outpatient (CLI) | payer MEDICARE ==
[~2020-08-08] MED LIST changes: +AZIT500T PO; +CEFD300C3 PO
[2020-08-08 00:27] LABS: BASOPHILS % (AUTO) 0 % (0-10); EOSINOPHILS # (AUTO) 0.3 10^3/uL (0.0-0.3); EOSINOPHILS % (AUTO) 4 % (0-10); HEMATOCRIT 37 % (35-52); HEMOGLOBIN 11.7 G/DL (11.5-16.0); LYMPHOCYTES # (AUTO) 1.4 X 10^3 (1.0-4.0); LYMPHOCYTES % (AUTO) 18 % (12-44); MEAN CORPUSCULAR HEMOGLOBIN 30 PG (25-34); MEAN CORPUSCULAR HGB CONC 32 G/DL (32-36); MEAN CORPUSCULAR VOLUME 93 FL (80-99); MEAN PLATELET VOLUME 12.4 FL (7.4-10.4); MONOCYTES # (AUTO) 1.2 X 10^3 (0.0-1.0); MONOCYTES % (AUTO) 16 % (0-12); NEUTROPHILS # (AUTO) 4.7 X 10^3 (1.8-7.8); NEUTROPHILS % (AUTO) 62 % (42-75); PLATELET COUNT 216 10^3/uL (130-400); WHITE BLOOD COUNT 7.6 10^3/uL (4.3-11.0)
[2020-08-08 00:33] LABS: ALBUMIN 3.3 GM/DL (3.2-4.5)
[2020-08-08 00:35] LABS: CALCIUM 9.9 MG/DL (8.5-10.1)
[2020-08-08 00:36] LABS: TOTAL PROTEIN 6.5 GM/DL (6.4-8.2)
[2020-08-08 00:38] LABS: BILIRUBIN,TOTAL 0.4 MG/DL (0.1-1.0)
[2020-08-08 00:39] LABS: CREATININE SERUM 1.11 MG/DL (0.60-1.30)
== END ==
LOC: CVS 00:02
PROVIDERS: ATTEND Family Medicine
DX: Z01.89 Encounter for other specified special examinations (principal)
CPT/HCPCS: 80053; 85025

== ENCOUNTER → 2020-12-09 | Outpatient (CLI) | payer OTHER, MEDICARE ==
[~2020-12-09] MED LIST changes: +AZIT500T PO; +CEFD300C3 PO
== END ==
LOC: CVS 17:20
PROVIDERS: ATTEND Internal Medicine
DX: R19.7 Diarrhea, unspecified (principal)
CPT/HCPCS: 87324; 87449